=== PATIENT | male | born 1930 | race Asian ===

== ENCOUNTER 2017-01-20 20:54 | Outpatient (CLI) | payer MEDICARE, OTHER | END 2017-01-20 20:55 | disposition critical access hospital (66) | LOC: EMS 20:54 | PROVIDERS: ATTEND Surgery | DX: R55 Syncope and collapse (principal) | CPT/HCPCS: A0425; A0429 ==

== ENCOUNTER 2017-01-20 21:36 | Inpatient (IN) | payer MEDICARE, OTHER ==
[2017-01-20 22:20] LABS: BASOPHILS # (AUTO) 0.1 10^3/uL (0.0-0.1); BASOPHILS % (AUTO) 0.8 %; EOSINOPHILS # (AUTO) 0.2 10^3/uL (0.0-0.7); HCT - HEMATOCRIT 45.2 % (42.0-52.0); HGB - HEMOGLOBIN 14.3 g/dL (14.0-18.0); LYMPHOCYTES # (AUTO) 1.8 10^3/uL (1.5-3.5); LYMPHOCYTES % (AUTO) 15.9 %; MEAN CORPUSCULAR HEMOGLOBIN 28.7 pg (27.0-31.0); MEAN CORPUSCULAR HGB CONC 31.6 g/dL (32.0-36.0); MEAN CORPUSCULAR VOLUME 90.8 fL (80.0-94.0); MEAN PLATELET VOLUME 7.6 fL (7.4-11.4); MONOCYTES # (AUTO) 0.9 10^3/uL (0.0-1.0); MONOCYTES % (AUTO) 8.4 %; NEUTROPHILS # (AUTO) 8.2 10^3/uL (1.5-6.6); NEUTROPHILS % (AUTO) 72.9 %; RED BLOOD COUNT 4.98 10^6/uL (4.70-6.10); RED CELL DISTRIBUTION WIDTH 16.4 % (12.0-15.0); UNCORRECTED WHITE BLOOD COUNT 11.3 x10^3/uL; WHITE BLOOD COUNT 11.3 x10^3/uL (4.8-10.8)
[2017-01-20 22:33] LABS: ALBUMIN/GLOBULIN RATIO 0.8 (1.0-2.2); BILIRUBIN,TOTAL 0.6 mg/dL (0.2-1.0); CREATININE 1.3 mg/dL (0.6-1.2); POTASSIUM 4.6 mmol/L (3.5-5.0); TOTAL PROTEIN 7.3 g/dL (6.7-8.2)
--- NOTE | 2017-01-20 22:34 | XRAY Preliminary Report ---
Exam: XR CHEST 2 VIEW PA/LAT IMPRESSION: 1. Large heart. 2. Right upper lobe and right lower lobe infiltrates. 3. Hyperinflated lungs. [facility] SITE ID: [id number]
--- NOTE | 2017-01-20 22:36 | XRAY Report ---
EXAM: CHEST RADIOGRAPHY EXAM DATE: 01/20/2017 10:20 PM. CLINICAL HISTORY: Cough. Syncope. COMPARISON: None. TECHNIQUE: 2 views. FINDINGS: Lungs/Pleura: Patchy opacities in the lateral right upper lobe and basal right lower lobe. No pleural effusion. No pneumothorax. Hyperinflated lungs. Mediastinum: Large heart. Other: No compression fractures. IMPRESSION: 1. Large heart. 2. Right upper lobe and right lower lobe infiltrates. 3. Hyperinflated lungs. [facility] Referring Provider Line: [phone] SITE ID: [id number]
[2017-01-20] MEDS ORDERED: levoFLOXacin 750 MG/150 ML 750 MG/150 ML BAG IV ONE (22:45)
--- NOTE | 2017-01-20 22:48 | ED Physician Documentation ---
PD HPI SYNCOPE - Stated complaint Stated Complaint: SYNCOPE - Chief complaint Chief Complaint: Cardiac - History obtained from History obtained from: Patient, EMS - History of Present Illness Witnessed: Unwitnessed Timing - onset: Today Duration: Unknown Preceding symptoms: Dyspnea Associated symptoms: No: Seizure, Chest pain, Palpitations, Diaphoresis Contributing factors: No: Recent med change, Emotional upset, Just stood up Injury occurred: Head injury Similar symptoms before: Has not had sx before Recently seen: Not recently seen - Additional information Additional information: Patient is an 86 year old male with multiple co-morbidities who is presenting to the emergency department for syncopal episode. According to patient and ems , patient was sitting at the table, watching TV when he passed out. patient states that he does not know how long he was out for but he thinks it was still the same tv show on when he woke up. Patient states that he has been coughing a lot recently but has not been using his oxygen. patient denied any chest pain. Review of Systems Constitutional: denies: Fever, Chills Eyes: denies: Loss of vision, Decreased vision, Photophobia, Irritation Ears: denies: Ear pain, Drainage/discharge Nose: denies: Rhinorrhea / runny nose, Congestion Throat: denies: Dental pain / toothache Cardiac: denies: Chest pain / pressure, Palpitations Respiratory: reports: Dyspnea, Cough. denies: Wheezing GI: denies: Abdominal Pain, Nausea, Vomiting : reports: Reviewed and negative Skin: reports: Abrasion (s) Musculoskeletal: denies: Neck pain, Back pain, Joint pain Neurologic: reports: Syncope, Head injury. denies: Generalized weakness, Headache, LOC Immunocompromised: denies: Immunocompromised PD PAST MEDICAL HISTORY - Past Medical History Cardiovascular: None Respiratory: Asthma Neuro: None Endocrine/Autoimmune: Type 2 diabetes GI: GERD : Benign prostate hypertrophy - Past Surgical History Past Surgical History: Yes General: Colonoscopy Ortho: Spine surgery - Present Medications Home Medications: Ambulatory Orders Medication Instructions Recorded Confirmed ALPRAZolam [Alprazolam] 0.5 mg PO TID 11/16/14 11/16/14 Albuterol Sulfate [Albuterol 2 puffs QID 11/16/14 11/16/14 Sulfate Hfa] Budesonide/Formoterol 160/4.5 11/16/14 11/16/14 [Symbicort] Celecoxib [CeleBREX] 200 mg 11/16/14 11/16/14 Doxycycline Hyclate 100 mg 11/16/14 11/16/14 Dutasteride [Avodart] 0.5 mg DAILY 11/16/14 11/16/14 Esomeprazole Magnesium [Nexium] 40 mg PO DAILY 11/16/14 11/16/14 Guaifenesin [Guaifenesin ER] 11/16/14 11/16/14 LORazepam [Ativan] 11/16/14 11/16/14 Metformin HCl [Glucophage] 11/16/14 11/16/14 Rosuvastatin Calcium [Crestor] 10 mg PO DAILY 11/16/14 11/16/14 Zolpidem Tartrate [Ambien] 5 mg QPM 11/16/14 11/16/14 - Allergies Allergies/Adverse Reactions: Allergies Allergy/AdvReac Type Severity Reaction Status Date / Time Penicillins Allergy Unknown Verified 01/20/17 21:43 sertraline Allergy Unknown Verified 01/20/17 21:43 venlafaxine Allergy Unknown Verified 01/20/17 21:43 - Social History Does the pt smoke?: No Smoking Status: Never smoker Does the pt drink ETOH?: Yes Does the pt have substance abuse?: No - Immunizations Immunizations are current?: Yes - POLST Patient has POLST: No PD ED PE NORMAL - Vitals Vital signs reviewed: Yes - General General: Alert and oriented X 3, Well developed/nourished - HEENT HEENT: PERRL, Moist mucous membranes, Pharynx benign - Neck Neck: Supple, no meningeal sign, No JVD - Cardiac Cardiac: RRR, No murmur - Abdomen Abdomen: Soft, Non tender, Non distended - Extremities Extremities: No deformity, No edema, No calf tenderness / cord - Neuro Neuro: Alert and oriented X 3, No motor deficit, No sensory deficit, Normal speech Eye Opening: Spontaneous Motor: Obeys Commands Verbal: Oriented GCS Score: 15 PD ED PE EXPANDED - HEENT HEENT: Head injury (abrasion to forehead and nasal bridge, no bony deformity, no laceration) - Respiratory Respiratory: Rhonchi, Right middle lobe, Left upper lobe. No: Labored, Stridor , Retractions - Derm Derm: Abrasion (s) Results - Vitals Vitals: Vital Signs - 24 hr 01/20/17 01/20/17 01/20/17 21:39 22:41 22:42 Temperature 36.7 C Heart Rate 62 66 Respiratory 23 24 Rate Blood Pressure 161/76 H 160/85 H O2 Saturation 83 L 91 L Oxygen O2 Source Room air Oxygen Flow Rate 2.5 - EKG (time done) 2145 Rate: Rate (enter#) (63) Rhythm: NSR, Abnormal P waves [place]: Normal Intervals: Normal [place] Other comments: Other comments (multiple pvcs) Compare to prior EKG: Old EKG unavailable - Labs Labs: Laboratory Tests 01/20/17 01/20/17 01/20/17 22:15 22:15 22:15 WBC 11.3 H RBC 4.98 Hgb 14.3 Hct 45.2 MCV 90.8 MCH 28.7 MCHC 31.6 L RDW 16.4 H Plt Count 243 MPV 7.6 Neut # 8.2 H Lymph # 1.8 [place] # 0.9 Eos # 0.2 Baso # 0.1 Absolute Nucleated RBC 0.00 Nucleated RBC % 0.0 Sodium 140 Potassium 4.6 Chloride 104 Carbon Dioxide 27 Anion Gap 9.0 BUN 34 H Creatinine 1.3 H Estimated GFR (MDRD) 52 L Glucose 124 H Calcium 9.0 Total Bilirubin 0.6 AST 29 ALT 31 Alkaline Phosphatase 104 Troponin I 0.05 B-Natriuretic Peptide Total Protein 7.3 Albumin 3.3 Globulin 4.0 Albumin/Globulin Ratio 0.8 L Lipase 31 01/20/17 22:15 WBC RBC Hgb Hct MCV MCH MCHC RDW Plt Count MPV Neut # Lymph # [place] # Eos # Baso # Absolute Nucleated RBC Nucleated RBC % Sodium Potassium Chloride Carbon Dioxide Anion Gap BUN Creatinine Estimated GFR (MDRD) Glucose Calcium Total Bilirubin AST ALT Alkaline Phosphatase Troponin I B-Natriuretic Peptide 576 H Total Protein Albumin Globulin Albumin/Globulin Ratio Lipase - Rads (name of study) chest x-ray Radiology: Final report received (cardiomegaly, multipe infiltrates) PD MEDICAL DECISION MAKING - ED course Complexity details: reviewed old records, reviewed results, re-evaluated patient , considered differential, d/w patient, d/w hematology oncology consultant ED course: Patient was seen and examined at bedside. Patient was mildly hypoxic and was placed on supplemental oxygen. ekg was performed and showed no signs of acute ischemia. IV access was gained and labs were drawn. chest x-ray was performed and was consistent with pneumonia. Patient was started on levaquin. Patient met admission criteria for both syncope and the pneumonia. Hospitalist was contacted and the case was discussed with him. Patient was admitted for further evaluation and care. Departure - Departure Disposition: 66 [facility] DC/Xfer Clinical Impression: Pneumonia, Syncope Condition: Stable
[2017-01-20] MEDS ORDERED: ACETAMINOPHEN 325 MG TABLET PO PRN (22:51)
[2017-01-20] MEDS ORDERED: SODIUM CHLORIDE FLUSH 0.9% 10 ML SYRINGE IVP PRN (22:51)
[2017-01-20] MEDS ORDERED: HYDROcod/ACETAM 10 MG/325 MG TABLET PO PRN (22:51)
[2017-01-20] MEDS ORDERED: ZOLPIDEM 5 MG TABLET PO PRN (22:51)
[2017-01-20] MEDS ORDERED: PROCHLORPERAZINE 10 MG/2 ML VIAL IVP PRN (22:51)
[2017-01-20] MEDS ORDERED: ONDANSETRON 4 MG/2 ML VIAL IVP PRN (22:51)
[2017-01-20] MEDS ORDERED: HYDROcod/ACETAM 5/325 MG TABLET PO PRN (22:51)
[2017-01-21] MEDS: levoFLOXacin 500 MG/100 ML 500 MG/100 ML BAG IV SCH ×2 (00:35→22:14)
[2017-01-21] MEDS: SODIUM CHLORIDE 0.9% 1,000 ML IV SCH ×2 (00:44→09:35)
[2017-01-21] MEDS: BUDESONIDE 0.5 MG/2 ML NEB INH SCH ×3 (00:45→20:30)
[2017-01-21] MEDS: FORMOTEROL FUMARATE NEB 20 MCG/2 ML INH SCH ×3 (00:45→20:30)
[2017-01-21] MEDS: ALPRAZolam 0.25 MG TABLET PO SCH ×4 (00:53→21:06)
[2017-01-21 01:46] LABS: BILIRUBIN,URINE NEGATIVE (NEGATIVE)
[2017-01-21 01:47] LABS: UA CHARGE (STRIP ONLY) YES; UR CULTURE IF IND NOT INDICATED
--- NOTE | 2017-01-21 02:38 | HISTORY & PHYSICAL EXAMINATION ---
Chief Complaint - Chief Complaint Chief Complaint: Syncope History of Present Illness - Admitted From Admitted From:: Emergency department - History Obtained From Records Reviewed: Yes History obtained from: Patient Exam Limitations: None - History of Present Illness HPI Comment/Other: Patient is an 86-year-old gentleman with a past medical history significant for COPD on home 2 at home but patient does not use O2, hyperlipidemia, anxiety, GERD, diabetes and BPH who presents to the emergency department with a chief complaint of syncope. According to the patient he was sitting at his living room table watching television when all of a sudden he passed out. He states he hit his face on the table but awoke quickly as he states he remembers everything that happened in the television show he was watching. On further questioning the patient states that he is a patient of the [facility] and has been working on getting a [place] primary care doctor for the last 11 months. He states he is finally scheduled to see a new PCP and Dr. Singleton on 01/22/2017 at 9 AM. He states that for the last 2 months he has been having progressively worsening cough with sputum production and increasing shortness of air. The patient states that his cough and shortness of air have become significantly worse over the last week to a point where he states that he gets quite short of breath just walking 15-20 feet. The patient denies any orthopnea, PND or any increased lower extremity swelling. The patient also denies any fevers or chills. The patient denies having had any chest pain or palpitations prior to the episode. The patient denies having any dizziness prior to the episode. The patient denies any diarrhea or vomiting. Patient denies any history of heart disease or arrhythmias. On presentation to the emergency department the patient was hypoxic down to 83% on room air and had to be placed on 2-1/2 L of oxygen. The patient was afebrile and slightly hypertensive and appeared to be quite tachypneic. The patient did have significant abrasions over his forehead and nasal bridge. The patient did not have any major cuts requiring stitching. The patient's lab work revealed a mild leukocytosis of 11.3 and a mild elevation in his creatinine up to 1.3 from a baseline of 0.8. The patient's UA was negative his electrolytes were otherwise within normal limits and his BNP was slightly elevated at 576. The patient's troponin was 0.05, his EKG was sinus rhythm without any major ST elevations or ischemic changes. The patient did have a chest x-ray which revealed cardiomegaly with right upper lobe and right lower lobe infiltrates. Given the patient's presentation it was presumed that the patient likely passed out secondary to hypoxia due to a ongoing pneumonia and history of COPD. The patient was admitted to the hospital for community- acquired pneumonia and further workup of his syncope History - Past Medical History Cardiovascular: reports: High cholesterol Respiratory: reports: COPD Neuro: reports: Fainting Endocrine/Autoimmune: reports: Type 2 diabetes GI: reports: GERD : reports: Benign prostate hypertrophy HEENT: reports: Chronic vision loss Psych: reports: Depression, Anxiety Musculoskeletal: reports: Osteoarthritis MRSA Hx?: Yes - Past Surgical History General: reports: Colonoscopy Ortho: reports: Spine surgery - Family & Social History Family History: Mother: (Mother at the age of 94 and father at age of 88 of natural causes), Father: Family History Comment/Other: No family history of heart disease, diabetes or cancer. Living arrangement: At home Living Situation: Alone Social History Notes: The patient states that he lives in [place]. He is a former Marine. He was born in [place]. He is . He does have a son that also lives on [facility] and is also a marine. The patient is a former smoker he quit about 20 years ago. He smoked for over 50 years and smoked 1-2 packs a day. He does not drink alcohol and denies any illicit drug use. - POLST Patient has POLST: No POLST Status: Full Code Meds/Allgy - Home Medications Home Medications: Ambulatory Orders Medication Instructions Recorded Confirmed ALPRAZolam [Alprazolam] 0.5 mg PO TID 11/16/14 11/16/14 Albuterol Sulfate [Albuterol 2 puffs QID 11/16/14 11/16/14 Sulfate Hfa] Budesonide/Formoterol 160/4.5 11/16/14 11/16/14 [Symbicort] Celecoxib [CeleBREX] 200 mg 11/16/14 11/16/14 Doxycycline Hyclate 100 mg 11/16/14 11/16/14 Dutasteride [Avodart] 0.5 mg DAILY 11/16/14 11/16/14 Esomeprazole Magnesium [Nexium] 40 mg PO DAILY 11/16/14 11/16/14 Guaifenesin [Guaifenesin ER] 11/16/14 11/16/14 LORazepam [Ativan] 11/16/14 11/16/14 Metformin HCl [Glucophage] 11/16/14 11/16/14 Rosuvastatin Calcium [Crestor] 10 mg PO DAILY 11/16/14 11/16/14 Zolpidem Tartrate [Ambien] 5 mg QPM 11/16/14 11/16/14 - Allergies Allergies/Adverse Reactions: Allergies Allergy/AdvReac Type Severity Reaction Status Date / Time Penicillins Allergy Unknown Verified 01/20/17 21:43 sertraline Allergy Unknown Verified 01/20/17 21:43 venlafaxine Allergy Unknown Verified 01/20/17 21:43 Review of Systems - Other Findings Other Findings: A comprehensive review of systems was performed the pertinent positives and negatives are stated above in the HPI and the remainder of the review of systems is negative. Exam - Vital Signs Reviewed Vital Signs: Yes Vital Signs: Vital Signs x48h Temp Pulse Pulse Resp BP BP Pulse Ox 01/21/17 00:43 36.9 C 59 L 19 147/73 H 92 01/20/17 23:48 66 20 152/71 H - Physical Exam General Appearance: positive: Alert, Mild distress (Patient does appear to be tachypneic and in some respiratory distress), Other (The patient is morose and did make some racially inappropriate comments towards myself. He was also very sullen towards his grandson that was in the room.) Eyes Bilateral: positive: Normal inspection, PERRL, EOMI, No lid inflammation, Conjunctivae nml, No scleral icterus ENT: positive: ENT inspection nml, Pharynx nml, Dry mucous membranes, Other ( Patient does have abrasions over his lower/mid forehead area as well as on the nasal bridge that appear almost like a rug burn). negative: Purulent nasal drainage, Pharyngeal erythema, Oral lesions Neck: positive: Nml inspection, Thyroid nml, No JVD, Trachea midline. negative : Thyromegaly, Lymphadenopathy (R), Lymphadenopathy (L), Stiff neck, Carotid bruit, Tracheal deviation Respiratory: positive: Chest non-tender, Wheezes (Scattered, expiratory), Rales (Bilateral bases), Rhonchi (Right-sided) Cardiovascular: positive: Regular rate & rhythm, No murmur, No gallop Peripheral Pulses: positive: 2+ Abdomen: positive: Non-tender, No organomegaly, Nml bowel sounds, No distention. negative: Guarding, Rebound, Hepatomegaly Back: positive: Nml inspection. negative: CVA tenderness (R), CVA tenderness (L ) Skin: positive: Warm. negative: Cyanosis, Diaphoresis, Pallor Extremities: positive: Non-tender, Full ROM, Pedal edema (Mild bilateral leg), Other (Erythema bilateral legs consistent with stasis dermatitis) Neurologic/Psychiatric: positive: Oriented x3, CN's nml (2-12), Motor nml, Sensation nml, Mood/affect nml Conclusion/Plan - Problem List (1) CAP (community acquired pneumonia) Conclusion/Plan: The patient presented originally to the emergency department with an episode of syncope. However on arrival he was found to be hypoxic with an O2 saturation of 83% on room air and was tachypneic with coughing and phlegm production. On further questioning the patient stated that he is supposed to be on oxygen at home for COPD however he does not use his oxygen. The patient had a short- lived syncopal episode from which he awoke with abrasions to his forehead and nasal bridge. The patient has been having increasing shortness of breath and coughing with sputum production over the last month but significantly worse over the last week. He has been trying to get into see a [facility] PCP however has had a very difficult time dealing with the [facility] system. Lab work revealed a leukocytosis and patient's chest x-ray showed right upper and lower lobe infiltrates given the patient's hypoxia and syncopal episode he was admitted to the [facility] for treatment of community acquired pneumonia with IV antibiotics. Plan: Patient will be placed on IV Levaquin for treatment of community acquired pneumonia We will give the patient IV fluids as he does appear to be on the dry side Patient desperately needs to make an appointment that he has set with his primary care physician at the [facility] on 01/22/2017 we could not promise the patient that he would be discharged in time to make the appointment however we will try and do our best to get the patient to that appointment. The patient did threaten that if he is not discharged in time for the appointment that he would leave AMA. Supplemental oxygen Duo nebs Qualifiers: Laterality: right (2) Syncope Conclusion/Plan: The patient presents to the emergency department with a syncopal episode. This episode occurred while the patient was sitting on his couch watching TV. The patient face planted into his table. He did have significant abrasions over his forehead and nasal bridge. The patient states that this was not a prolonged syncopal episode and in fact states that he remembers the entire episode. The etiology of the patient's syncope appears likely secondary to him being hypoxic due to chronic COPD and now a new pneumonia. It is however possible given that this was a sudden syncope that this could have been from a cardiac arrhythmia. Plan: Patient will be monitored on telemetry Patient will undergo an echocardiogram in the morning We will monitor for any further episodes Patient will be given supplemental oxygen (3) COPD (chronic obstructive pulmonary disease) Conclusion/Plan: The patient has a history of COPD and is on oxygen at home but does not use his oxygen appropriately. Patient does use inhalers as needed but states that he does not use his Symbicort daily. Patient presents with hypoxia and is found to have community acquired pneumonia he does have some mild wheezing on examination but does not appear to be in a pullout COPD exacerbation at this time. Plan: We will give the patient supplemental oxygen Patient will be given formoterol and budesonide twice daily while he is hospitalized Patient will be given DuoNeb's as needed Patient will be on Levaquin for community acquired pneumonia We will not treat with steroids as the patient does have history of diabetes and is not in COPD exacerbation (4) MARY ANN (acute kidney injury) Conclusion/Plan: The patient does appear to be quite dry on examination. Looking at his lab work his creatinine is elevated to 1.3 which is up from a baseline of 0.8. This is likely prerenal azotemia secondary to community-acquired pneumonia. Plan: Patient will be given IV fluids We will continue to monitor the patient's creatinine (5) Diabetes Conclusion/Plan: The patient has history of diabetes and is on metformin at home. The patient however denies having diabetes and states that was a long time ago but does admit to taking metformin. Plan: We will check a hemoglobin A1c Patient be placed on a diabetic diet Patient's metformin will be held Patient will be placed on sliding scale insulin while he is hospitalized We will check patient's blood glucose before meals at bedtime Qualifiers: Diabetes mellitus type: type 2 (6) Prophylactic use of low molecular weight heparin for venous thromboembolism Conclusion/Plan: Patient was placed on Lovenox for DVT prophylaxis while he is hospitalized - Lab Results Lab results reviewed: Yes Fish Bones: 01/20/17 22:15 01/20/17 22:15 Other Lab Results: Laboratory Results WBC 11.3 x10^3/uL (4.8-10.8) H 01/20/17 22:15 RBC 4.98 10^6/uL (4.70-6.10) 01/20/17 22:15 Hgb 14.3 g/dL (14.0-18.0) 01/20/17 22:15 Hct 45.2 % (42.0-52.0) 01/20/17 22:15 MCV 90.8 fL (80.0-94.0) 01/20/17 22:15 MCH 28.7 pg (27.0-31.0) 01/20/17 22:15 MCHC 31.6 g/dL (32.0-36.0) L 01/20/17 22:15 RDW 16.4 % (12.0-15.0) H 01/20/17 22:15 Plt Count 243 10^3/uL (130-450) 01/20/17 22:15 MPV 7.6 fL (7.4-11.4) 01/20/17 22:15 Neut # 8.2 10^3/uL (1.5-6.6) H 01/20/17 22:15 Lymph # 1.8 10^3/uL (1.5-3.5) 01/20/17 22:15 [place] # 0.9 10^3/uL (0.0-1.0) 01/20/17 22:15 Eos # 0.2 10^3/uL (0.0-0.7) 01/20/17 22:15 Baso # 0.1 10^3/uL (0.0-0.1) 01/20/17 22:15 Absolute Nucleated RBC 0.00 x10^3/uL 01/20/17 22:15 Nucleated RBC % 0.0 /100WBC 01/20/17 22:15 Sodium 140 mmol/L (135-145) 01/20/17 22:15 Potassium 4.6 mmol/L (3.5-5.0) 01/20/17 22:15 Chloride 104 mmol/L (101-111) 01/20/17 22:15 Carbon Dioxide 27 mmol/L (21-32) 01/20/17 22:15 Anion Gap 9.0 (6-13) 01/20/17 22:15 BUN 34 mg/dL (6-20) H 01/20/17 22:15 Creatinine 1.3 mg/dL (0.6-1.2) H 01/20/17 22:15 Estimated GFR (MDRD) 52 (>89) L 01/20/17 22:15 Glucose 124 mg/dL (70-100) H 01/20/17 22:15 Calcium 9.0 mg/dL (8.5-10.3) 01/20/17 22:15 Total Bilirubin 0.6 mg/dL (0.2-1.0) 01/20/17 22:15 AST 29 IU/L (10-42) 01/20/17 22:15 ALT 31 IU/L (10-60) 01/20/17 22:15 Alkaline Phosphatase 104 IU/L (42-121) 01/20/17 22:15 Troponin I 0.05 ng/mL (<0.49) 01/20/17 22:15 B-Natriuretic Peptide 576 pg/mL (5-100) H 01/20/17 22:15 Total Protein 7.3 g/dL (6.7-8.2) 01/20/17 22:15 Albumin 3.3 g/dL (3.2-5.5) 01/20/17 22:15 Globulin 4.0 g/dL (2.1-4.2) 01/20/17 22:15 Albumin/Globulin Ratio 0.8 (1.0-2.2) L 01/20/17 22:15 Lipase 31 U/L (22-51) 01/20/17 22:15 Urine Color YELLOW 01/21/17 01:42 Urine Clarity CLEAR (CLEAR) 01/21/17 01:42 Urine pH 6.0 PH (5.0-7.5) 01/21/17 01:42 Ur Specific [place] >=1.030 (1.002-1.030) H 01/21/17 01:42 Urine Protein NEGATIVE mg/dL (NEGATIVE) 01/21/17 01:42 Urine Glucose (UA) NEGATIVE mg/dL (NEGATIVE) 01/21/17 01:42 Urine Ketones NEGATIVE mg/dL (NEGATIVE) 01/21/17 01:42 Urine Occult Blood NEGATIVE (NEGATIVE) 01/21/17 01:42 Urine Nitrite NEGATIVE (NEGATIVE) 01/21/17 01:42 Urine Bilirubin NEGATIVE (NEGATIVE) 01/21/17 01:42 Urine Urobilinogen 0.2 (NORMAL) E.U./dL (NORMAL) 01/21/17 01:42 Ur Leukocyte Esterase NEGATIVE (NEGATIVE) 01/21/17 01:42 Ur Microscopic Review NOT INDICATED 01/21/17 01:42 Urine Culture Comments NOT INDICATED 01/21/17 01:42 - Diagnostic Imaging Results Diagnostic Imaging Results: positive: Final report reviewed Diagnostic Imaging Results Comments: Chest x-ray Impression: 1. Large heart 2. Right upper lobe and right lower lobe infiltrates. 3. Hyperinflated lungs - EKG Results EKG Interpreted Independently: Yes EKG Findings: Sinus rhythm with no ST elevations or acute ischemic changes. Issues/Core Measures - Anticipated LOS Anticipated Stay Length: 2 or more midnights - DVT/VTE - Prophylaxis VTE/DVT Prophylaxis med ordered at admit?: Yes
[2017-01-21] MEDS: SODIUM CHLORIDE FLUSH 0.9% 10 ML SYRINGE IVP SCH ×3 (05:04→22:14)
[2017-01-21 05:23] LABS: BASOPHILS # (AUTO) 0.1 10^3/uL (0.0-0.1); BASOPHILS % (AUTO) 1.1 %; EOSINOPHILS # (AUTO) 0.2 10^3/uL (0.0-0.7); EOSINOPHILS % (AUTO) 1.8 %; HCT - HEMATOCRIT 43.1 % (42.0-52.0); HGB - HEMOGLOBIN 13.8 g/dL (14.0-18.0); LYMPHOCYTES # (AUTO) 2.2 10^3/uL (1.5-3.5); LYMPHOCYTES % (AUTO) 17.1 %; MEAN CORPUSCULAR VOLUME 90.6 fL (80.0-94.0); MEAN PLATELET VOLUME 7.6 fL (7.4-11.4); MONOCYTES # (AUTO) 1.2 10^3/uL (0.0-1.0); MONOCYTES % (AUTO) 9.3 %; NEUTROPHILS # (AUTO) 9.1 10^3/uL (1.5-6.6); NEUTROPHILS % (AUTO) 70.7 %; RED BLOOD COUNT 4.76 10^6/uL (4.70-6.10); RED CELL DISTRIBUTION WIDTH 16.3 % (12.0-15.0); UNCORRECTED WHITE BLOOD COUNT 12.9 x10^3/uL; WHITE BLOOD COUNT 12.9 x10^3/uL (4.8-10.8)
[2017-01-21 05:34] LABS: CALCIUM 8.7 mg/dL (8.5-10.3); CREATININE 1.1 mg/dL (0.6-1.2); POTASSIUM 4.6 mmol/L (3.5-5.0)
[2017-01-21 05:53] LABS: HEMOGLOBIN A1C 0.71 g/dL
[2017-01-21] MEDS: PANTOPRAZOLE 40 MG TABLET PO SCH (06:38)
[2017-01-21] MEDS: IPRATROPIUM/ALBUTEROL 3 ML NEB INH PRN ×2 (07:56→15:30)
[2017-01-21] MEDS: INSULIN ASPART 300 UNIT/3 ML PEN SUBQ SCH ×4 (08:07→20:59)
[2017-01-21] MEDS: POLYETHYLENE GLYCOL 3350 17 GM PACKET PO SCH (08:08)
[2017-01-21] MEDS ORDERED: cefTRIAXone 2 GM in SODIUM CHLORIDE 0.9% MINIBAG 100 ML IV SCH (09:00)
[2017-01-21] MEDS ORDERED: AZITHROMYCIN INJ 500 MG in SODIUM CHLORIDE 0.9% 250 ML IV SCH (09:00)
[2017-01-21] MEDS ORDERED: DUTASTERIDE 0.5 MG PO SCH (09:00)
[2017-01-21] MEDS ORDERED: NON FORMULARY MED (Rosuvastatin Calcium [Crestor] 10 MG) PO SCH (09:00)
[2017-01-21] MEDS: SACCHAROMYCES BOULARDII 250 MG CAPSULE PO SCH ×2 (09:35→18:10)
[2017-01-21] MEDS: CELECOXIB 100 MG CAPSULE PO SCH (09:36)
[2017-01-21] MEDS: ENOXAPARIN 40 MG/0.4 ML SYRINGE SUBQ SCH (09:36)
[2017-01-21] MEDS: FINASTERIDE 5 MG TABLET PO SCH (09:36)
--- NOTE | 2017-01-21 12:33 | PROVIDER PROGRESS NOTE ---
Subjective - Prog Note Date Prog Note Date: 01/21/17 Prog Note Time: 12:29 - Subjective Pt reports feeling: Worse Subjective: He has not done well this morning. Got a sleeping pill at 3 in the morning so this morning he was quite obtunded. Gurgling, barely coughing up phlegm. Swallowing was a risk for aspiration. We gave him nebulizer treatment, oxygen and he seemed to perk up. Now, at 12:30 in the afternoon he is back to being obtunded, hypoxic requiring face max, and I have had a chance to review his pharmacy list. The pharmacist was able to call [facility], where he gets his prescriptions. He has not seen a primary care provider in quite some time. He has been hospitalized at [facility], seen a plasterer foreman in [place] ( MD Aniket) and seen a baseball winder at [place] (Catarino Reed MD). All of these people have given him short-term prescriptions for Lasix, and he was told to follow up. His last prescription for Lasix was in September of this year. The only medicines he has filled at [facility] have been Lasix, lisinopril, pro-air , and Symbicort. ProAir air was filled January 04 by his plasterer foreman. Lisinopril was filled January 04. It is unclear if his Lasix was picked up January 04. Current Medications - Current Medications Current Medications: Active Medications Acetaminophen (Tylenol) 650 mg PO Q4HR PRN PRN Reason: Pain 1 to 4 Last Admin: 01/21/17 02:34 Dose: 650 mg Acetaminophen/Hydrocodone Bitart (Edelstein 5/325) 1 tab PO Q4HR PRN PRN Reason: Pain 5 to 7 Acetaminophen/Hydrocodone Bitart ([place]stein 10 Mg/325 Mg) 1 tab PO Q4HR PRN PRN Reason: Pain 8 to 10 Albuterol/Ipratropium (Duoneb) 3 ml INH RTQID PRN PRN Reason: Wheezing Last Admin: 01/21/17 07:56 Dose: 3 ml Alprazolam (Xanax) 0.5 mg PO TID CLARE Last Admin: 01/21/17 05:01 Dose: Not Given Atorvastatin Calcium (Lipitor) 40 mg PO QPM CLARE Budesonide (Pulmicort) 0.5 mg INH RTBID CLARE Last Admin: 01/21/17 07:56 Dose: 0.5 mg Celecoxib (Celebrex) 200 mg PO DAILY [facility] Last Admin: 01/21/17 09:36 Dose: 200 mg Enoxaparin Sodium (Lovenox) 40 mg SUBQ DAILY [facility] Last Admin: 01/21/17 09:36 Dose: 40 mg Finasteride (Proscar) 5 mg PO DAILY [facility] Last Admin: 01/21/17 09:36 Dose: 5 mg Formoterol Fumarate (Perforomist) 20 mcg INH RTBID [facility] Last Admin: 01/21/17 07:56 Dose: 20 mcg Furosemide (Lasix Inj 40 Mg Vial) 40 mg IVP BIDDIURETIC [facility] Sodium Chloride (Normal Saline 0.9%) 1,000 mls @ 120 mls/hr IV .Q8H20M [facility] Last Admin: 01/21/17 09:35 Dose: 120 mls/hr Levofloxacin (Levaquin 500 Mg/100 Ml) 500 mg in 100 mls @ 100 mls/hr IV Q24H [facility] Insulin Aspart (Novolog) 1 - 5 unit SUBQ 0800,1200,1700,2100 [facility] PRN Reason: Protocol Last Admin: 01/21/17 08:07 Dose: Not Given Ondansetron HCl (Zofran Inj) 4 mg IVP Q6HR PRN PRN Reason: Nausea / Vomiting Pantoprazole Sodium (Protonix) 40 mg PO QDAC [facility] Last Admin: 01/21/17 06:38 Dose: 40 mg Polyethylene Glycol (Miralax) 17 gm PO DAILY [facility] Last Admin: 01/21/17 08:08 Dose: Not Given Prochlorperazine Edisylate (Compazine Inj) 10 mg IVP Q6HR PRN PRN Reason: Nausea / Vomiting Saccharomyces Boulardii (Florastor) 250 mg PO BIDWM [facility] Last Admin: 01/21/17 09:35 Dose: 250 mg Sodium Chloride (Normal Saline Flush 0.9%) 10 ml IVP PRN PRN PRN Reason: NEEDED PER PROVIDER ORDERS Sodium Chloride (Normal Saline Flush 0.9%) 10 ml IVP Q8HR [facility] Last Admin: 01/21/17 05:04 Dose: Not Given Zolpidem Tartrate (Ambien) 5 mg PO QPM PRN PRN Reason: Insomnia Last Admin: 01/21/17 03:03 Dose: 5 mg Budesonide/Formoterol 160/4.5 [Symbicort] 2 puffs INH BID 11/16/14 Albuterol Sulfate [Proair Hfa Inhaler] 2 puffs INH Q4H PRN 01/21/17 Furosemide 20 mg PO DAILY 01/21/17 Lisinopril 10 mg PO DAILY 01/21/17 Objective - Vital Signs/Intake & Output Reviewed Vital Signs: Yes Vital Signs: Vital Signs x48h Temp Pulse Pulse Resp BP Pulse Ox 01/21/17 07:59 74 24 01/21/17 07:47 36.4 C L 83 19 143/72 H 88 L 01/21/17 07:46 17 87 L 01/21/17 07:40 19 83 L 01/21/17 04:55 36.6 C 80 18 144/82 H 92 Intake & Output: Intake & Output 01/18/17 01/19/17 01/20/17 01/21/17 23:59 23:59 23:59 23:59 Intake Total 1650 Output Total 550 Balance 1100 - Objective General Appearance: positive: Moderate distress, Other (Tall, moderately overweight elderly gentleman with a large belly who is obtunded, responds to voice and sternal rub) Eyes Bilateral: positive: PERRL ENT: positive: Dry mucous membranes Neck: negative: Lymphadenopathy (R), Lymphadenopathy (L), Stiff neck, Carotid bruit Respiratory: positive: Chest non-tender, Wheezes, Rales, Rhonchi, Other (No use of accessory muscles. No rib retraction.Breathing at 4-14 breaths a minute) Cardiovascular: positive: Irregularly irregular, JVD present. negative: Gallop/ S4, Friction rub Abdomen: positive: Non-tender, Nml bowel sounds, No distention, Other (Obese, large rotund pannus) Extremities: positive: Pedal edema Neurologic/Psychiatric: positive: CN's nml (2-12), Motor nml, Disoriented to person, Disoriented to place, Disoriented to time, Slurred/abnml speech - Lab Results Fish Bones: 01/21/17 05:08 01/21/17 05:08 Other Labs: Lab Results x24hrs 01/21/17 01/21/17 01/21/17 Range/Units 12:22 08:06 05:08 WBC (4.8-10.8) x10^3/uL RBC (4.70-6.10) 10^6/uL Hgb (14.0-18.0) g/dL Hct (42.0-52.0) % MCV (80.0-94.0) fL MCH (27.0-31.0) pg MCHC (32.0-36.0) g/dL RDW (12.0-15.0) % Plt Count (130-450) 10^3/uL MPV (7.4-11.4) fL Neut # (1.5-6.6) 10^3/uL Lymph # (1.5-3.5) 10^3/uL [place] # (0.0-1.0) 10^3/uL Eos # (0.0-0.7) 10^3/uL Baso # (0.0-0.1) 10^3/uL Absolute Nucleated RBC x10^3/uL Nucleated RBC % /100WBC Sodium (135-145) mmol/L Potassium (3.5-5.0) mmol/L Chloride (101-111) mmol/L Carbon Dioxide (21-32) mmol/L Anion Gap (6-13) BUN (6-20) mg/dL Creatinine (0.6-1.2) mg/dL Estimated GFR (MDRD) (>89) Glucose (70-100) mg/dL POC Whole Bld Glucose 120 H 102 H (70 - 100) mg/dL Glycated Hemoglobin 6.6 H (4.6-6.2) % Estim Average Glucose 143 H (70-100) Calcium (8.5-10.3) mg/dL Urine Color Urine Clarity (CLEAR) Urine pH (5.0-7.5) PH Ur Specific [place] (1.002-1.030) Urine Protein (NEGATIVE) mg/dL Urine Glucose (UA) (NEGATIVE) mg/dL Urine Ketones (NEGATIVE) mg/dL Urine Occult Blood (NEGATIVE) Urine Nitrite (NEGATIVE) Urine Bilirubin (NEGATIVE) Urine Urobilinogen (NORMAL) E.U./dL Ur Leukocyte Esterase (NEGATIVE) Ur Microscopic Review Urine Culture Comments 11/28/17 11/28/17 11/28/17 Range/Units 05:08 05:08 01:42 WBC 12.9 H (4.8-10.8) x10^3/uL RBC 4.76 (4.70-6.10) 10^6/uL Hgb 13.8 L (14.0-18.0) g/dL Hct 43.1 (42.0-52.0) % MCV 90.6 (80.0-94.0) fL MCH 29.0 (27.0-31.0) pg MCHC 32.0 (32.0-36.0) g/dL RDW 16.3 H (12.0-15.0) % Plt Count 235 (130-450) 10^3/uL MPV 7.6 (7.4-11.4) fL Neut # 9.1 H (1.5-6.6) 10^3/uL Lymph # 2.2 (1.5-3.5) 10^3/uL [place] # 1.2 H (0.0-1.0) 10^3/uL Eos # 0.2 (0.0-0.7) 10^3/uL Baso # 0.1 (0.0-0.1) 10^3/uL Absolute Nucleated RBC 0.00 x10^3/uL Nucleated RBC % 0.0 /100WBC Sodium 140 (135-145) mmol/L Potassium 4.6 (3.5-5.0) mmol/L Chloride 107 (101-111) mmol/L Carbon Dioxide 25 (21-32) mmol/L Anion Gap 8.0 (6-13) BUN 31 H (6-20) mg/dL Creatinine 1.1 (0.6-1.2) mg/dL Estimated GFR (MDRD) 63 L (>89) Glucose 132 H (70-100) mg/dL POC Whole Bld Glucose (70 - 100) mg/dL Glycated Hemoglobin (4.6-6.2) % Estim Average Glucose (70-100) Calcium 8.7 (8.5-10.3) mg/dL Urine Color YELLOW Urine Clarity CLEAR (CLEAR) Urine pH 6.0 (5.0-7.5) PH Ur Specific [place] >=1.030 H (1.002-1.030) Urine Protein NEGATIVE (NEGATIVE) mg/dL Urine Glucose (UA) NEGATIVE (NEGATIVE) mg/dL Urine Ketones NEGATIVE (NEGATIVE) mg/dL Urine Occult Blood NEGATIVE (NEGATIVE) Urine Nitrite NEGATIVE (NEGATIVE) Urine Bilirubin NEGATIVE (NEGATIVE) Urine Urobilinogen 0.2 (NORMAL) (NORMAL) E.U./dL Ur Leukocyte Esterase NEGATIVE (NEGATIVE) Ur Microscopic Review NOT INDICATED Urine Culture Comments NOT INDICATED Assessment/Plan - Problem List (1) Acute respiratory failure with hypoxemia Impression: Most likely a combination of pneumonia and congestive heart failure. Plan: Check ABG Lasix 40 mg IV push will be started, twice daily Review echo when it is ready Continue Perforomist, Pulhanh, Shawn, Levaquin Once ABG is reviewed, consider transfer to ICU for BiPAP (2) CAP (community acquired pneumonia) Impression: The patient presented originally to the emergency department with an episode of syncope. However on arrival he was found to be hypoxic with an O2 saturation of 83% on room air and was tachypneic with coughing and phlegm production. On further questioning the patient stated that he is supposed to be on oxygen at home for COPD however he does not use his oxygen. The patient had a short- lived syncopal episode from which he awoke with abrasions to his forehead and nasal bridge. The patient has been having increasing shortness of breath and coughing with sputum production over the last month but significantly worse over the last week. He has been trying to get into see a [facility] PCP however has had a very difficult time dealing with the [facility] system. Lab work revealed a leukocytosis and patient's chest x-ray showed right upper and lower lobe infiltrates given the patient's hypoxia and syncopal episode he was admitted to the medical [facility] for treatment of community acquired pneumonia with IV antibiotics. Plan: Patient will be placed on IV Levaquin for treatment of community acquired pneumonia. Day #2. We gave the patient IV fluids as he did appear to be on the dry side but have stopped it due to acute chf. Patient desperately needs to make an appointment that he has set with his primary care physician at the [facility] on 01/22/2017 we could not promise the patient that he would be discharged in time to make the appointment however we will try and do our best to get the patient to that appointment. He is worse today so I don't think I an dc in the morning. The patient did threaten that if he is not discharged in time for the appointment that he would leave [facility] Qualifiers: Laterality: right (3) Syncope Conclusion/Plan: The patient presents to the emergency department with a syncopal episode. This episode occurred while the patient was sitting on his couch watching TV. The patient face planted into his table. He did have significant abrasions over his forehead and nasal bridge. The patient states that this was not a prolonged syncopal episode and in fact states that he remembers the entire episode. The etiology of the patient's syncope appears likely secondary to him being hypoxic due to chronic COPD and now a new pneumonia. It is however possible given that this was a sudden syncope that this could have been from a cardiac arrhythmia. Plan: Patient will be monitored on telemetry and so far he has had sinus, 1st degree with a bundle and many ectopic beats of PAC's and PVC's. Patient will undergo an echocardiogram today to see if there is a component to what I suspect is CHF. We will monitor for any further episodes of syncope. (4) COPD (chronic obstructive pulmonary disease) Conclusion/Plan: The patient has a history of COPD and is on oxygen at home but does not use his oxygen appropriately. [employer] is Antwan Marcial in [place]. Patient does use inhalers as needed but states that he does not use his Symbicort daily. Patient presents with hypoxia and is found to have community acquired pneumonia he does have some mild wheezing on examination but does not appear to be in a pullout COPD exacerbation at this time. Plan: We will give the patient supplemental oxygen Patient will be given formoterol and budesonide twice daily while he is hospitalized Patient will be given DuoNeb's as needed Patient will be on Levaquin for community acquired pneumonia We will not treat with steroids as the patient does have history of diabetes and is not in COPD exacerbation (5) MARY ANN (acute kidney injury) Conclusion/Plan: The patient does appear to be quite dry on examination. Looking at his lab work his creatinine is elevated to 1.3 which is up from a baseline of 0.8. This is likely prerenal azotemia secondary to community-acquired pneumonia. Today he is 1.1 so improved slightly. Plan: Patient will be given IV fluids We will continue to monitor the patient's creatinine (6) Diabetes Conclusion/Plan: The patient has history of diabetes and is on metformin at home. The patient however denies having diabetes and states that was a long time ago but does admit to taking metformin. Plan: We will check a hemoglobin A1c Patient be placed on a diabetic diet Patient's metformin will be held to avoid lactic acidosis. Patient will be placed on sliding scale insulin while he is hospitalized and so far none has been needed up to now. We will check patient's blood glucose before meals at bedtime Qualifiers: Diabetes mellitus type: type 2 Qualifiers: Laterality: right
[2017-01-21 12:56] LABS: ABG ANALYSIS TIME 1253; ABG PCO2 57 mmHg (34-45); ABG PH 7.28 (7.35-7.45)
[2017-01-21 12:57] LABS: ABG BASE EXCESS -1.6 mmol/L (-2.0-3.0); ABG HCO3 26.2 mmol/L (22.0-26.0); ABG O2 DEVICE OXYMASK; ABG OXYGEN SATURATION 93 % (94-98); ABG PO2 73 mmHg (80-100); ABG SITE OF DRAW RIGHT RADIAL; ABG TCO2 27.9 MMOL/L (21.0-29.0); ALLEN TEST POSITIVE
[2017-01-21] MEDS: FUROSEMIDE 40 MG/4 ML VIAL IVP SCH ×2 (13:03→13:05)
[2017-01-21] MEDS: ATORVASTATIN 40 MG TABLET PO SCH (21:06)
[2017-01-22 05:55] LABS: BASOPHILS % (AUTO) 0.3 %; EOSINOPHILS # (AUTO) 0.2 10^3/uL (0.0-0.7); EOSINOPHILS % (AUTO) 1.9 %; HGB - HEMOGLOBIN 13.2 g/dL (14.0-18.0); LYMPHOCYTES # (AUTO) 1.2 10^3/uL (1.5-3.5); LYMPHOCYTES % (AUTO) 10.5 %; MEAN CORPUSCULAR HEMOGLOBIN 28.9 pg (27.0-31.0); MEAN CORPUSCULAR HGB CONC 31.5 g/dL (32.0-36.0); MEAN CORPUSCULAR VOLUME 91.6 fL (80.0-94.0); MEAN PLATELET VOLUME 7.6 fL (7.4-11.4); MONOCYTES % (AUTO) 8.5 %; NEUTROPHILS # (AUTO) 8.8 10^3/uL (1.5-6.6); NEUTROPHILS % (AUTO) 78.8 %; RED BLOOD COUNT 4.58 10^6/uL (4.70-6.10); UNCORRECTED WHITE BLOOD COUNT 11.1 x10^3/uL; WHITE BLOOD COUNT 11.1 x10^3/uL (4.8-10.8)
[2017-01-22 05:57] LABS: CALCIUM 8.6 mg/dL (8.5-10.3); CREATININE 0.9 mg/dL (0.6-1.2); POTASSIUM 4.7 mmol/L (3.5-5.0)
[2017-01-22] MEDS: ALPRAZolam 0.25 MG TABLET PO SCH ×3 (06:44→21:57)
[2017-01-22] MEDS: PANTOPRAZOLE 40 MG TABLET PO SCH (06:44)
[2017-01-22] MEDS: FUROSEMIDE 40 MG/4 ML VIAL IVP SCH ×2 (06:44→14:44)
[2017-01-22] MEDS: SODIUM CHLORIDE FLUSH 0.9% 10 ML SYRINGE IVP SCH ×3 (06:45→21:57)
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
[2017-01-22] MEDS: BUDESONIDE 0.5 MG/2 ML NEB INH SCH ×2 (07:54→19:30)
[2017-01-22] MEDS: IPRATROPIUM/ALBUTEROL 3 ML NEB INH PRN (07:54)
[2017-01-22] MEDS: SACCHAROMYCES BOULARDII 250 MG CAPSULE PO SCH ×2 (08:57→17:02)
[2017-01-22] MEDS: CELECOXIB 100 MG CAPSULE PO SCH (08:57)
[2017-01-22] MEDS: FINASTERIDE 5 MG TABLET PO SCH (08:58)
[2017-01-22] MEDS: ENOXAPARIN 40 MG/0.4 ML SYRINGE SUBQ SCH (08:58)
[2017-01-22] MEDS: INSULIN ASPART 300 UNIT/3 ML PEN SUBQ SCH ×4 (08:58→21:15)
[2017-01-22] MEDS: FORMOTEROL FUMARATE NEB 20 MCG/2 ML INH SCH ×2 (09:13→19:30)
[2017-01-22] MEDS: POLYETHYLENE GLYCOL 3350 17 GM PACKET PO SCH (09:24)
[2017-01-22] MEDS: levoFLOXacin 500 MG/100 ML 500 MG/100 ML BAG IV SCH (21:57)
[2017-01-22] MEDS: ATORVASTATIN 40 MG TABLET PO SCH (21:57)
[2017-01-23 05:46] LABS: BASOPHILS # (AUTO) 0.1 10^3/uL (0.0-0.1); EOSINOPHILS # (AUTO) 0.3 10^3/uL (0.0-0.7); EOSINOPHILS % (AUTO) 2.6 %; HCT - HEMATOCRIT 42.4 % (42.0-52.0); HGB - HEMOGLOBIN 13.3 g/dL (14.0-18.0); LYMPHOCYTES # (AUTO) 1.8 10^3/uL (1.5-3.5); LYMPHOCYTES % (AUTO) 16.4 %; MEAN CORPUSCULAR HEMOGLOBIN 28.6 pg (27.0-31.0); MEAN CORPUSCULAR HGB CONC 31.4 g/dL (32.0-36.0); MEAN CORPUSCULAR VOLUME 91.1 fL (80.0-94.0); MEAN PLATELET VOLUME 7.6 fL (7.4-11.4); MONOCYTES # (AUTO) 1.1 10^3/uL (0.0-1.0); MONOCYTES % (AUTO) 10.1 %; NEUTROPHILS # (AUTO) 7.6 10^3/uL (1.5-6.6); NEUTROPHILS % (AUTO) 69.9 %; NUCLEATED RED BLOOD CELLS AUTO 0.1 /100WBC; RED BLOOD COUNT 4.66 10^6/uL (4.70-6.10); RED CELL DISTRIBUTION WIDTH 15.9 % (12.0-15.0); UNCORRECTED WHITE BLOOD COUNT 10.8 x10^3/uL; WHITE BLOOD COUNT 10.8 x10^3/uL (4.8-10.8)
[2017-01-23 05:59] LABS: CALCIUM 8.4 mg/dL (8.5-10.3); CREATININE 0.9 mg/dL (0.6-1.2); POTASSIUM 4.3 mmol/L (3.5-5.0)
[2017-01-23] MEDS: PANTOPRAZOLE 40 MG TABLET PO SCH (06:25)
[2017-01-23] MEDS: ALPRAZolam 0.25 MG TABLET PO SCH ×2 (06:25→16:38)
[2017-01-23] MEDS: FORMOTEROL FUMARATE NEB 20 MCG/2 ML INH SCH (07:17)
[2017-01-23] MEDS: BUDESONIDE 0.5 MG/2 ML NEB INH SCH (07:17)
[2017-01-23] MEDS: FUROSEMIDE 40 MG/4 ML VIAL IVP SCH ×2 (07:35→16:38)
[2017-01-23] MEDS: INSULIN ASPART 300 UNIT/3 ML PEN SUBQ SCH ×3 (09:01→17:33)
[2017-01-23] MEDS: FINASTERIDE 5 MG TABLET PO SCH (09:01)
[2017-01-23] MEDS: ENOXAPARIN 40 MG/0.4 ML SYRINGE SUBQ SCH (09:01)
[2017-01-23] MEDS: SACCHAROMYCES BOULARDII 250 MG CAPSULE PO SCH ×2 (09:01→17:36)
[2017-01-23] MEDS: POLYETHYLENE GLYCOL 3350 17 GM PACKET PO SCH (09:01)
[2017-01-23] MEDS: CELECOXIB 100 MG CAPSULE PO SCH (09:01)
[2017-01-23] MEDS: SODIUM CHLORIDE FLUSH 0.9% 10 ML SYRINGE IVP SCH ×2 (09:52→16:39)
--- NOTE | 2017-01-23 14:58 | PROVIDER PROGRESS NOTE ---
Subjective - Prog Note Date Prog Note Date: 01/23/17 Prog Note Time: 14:54 - Subjective Pt reports feeling: Improved Subjective: He wants to go home. Keeps on asking to go home. I did spend some time talking to Dr. Reed on the phone about him yesterday. 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 The some of the syncope may be due to the fact that he bradycardia down with sinus bradycardia and had the syncope. R locate technician is only caught down to 45. But I have been in the room personally when he has bradycardia down to 32 beats a minute. He was sitting down. Did not feel lightheaded. Then he goes back into A. fib to 132. Dr. Reed feels that the patient needs a pacemaker. I have called [facility] and V1 crab fisher that handled electrophysiology is out of town for a week. I called Dr. Reed's group at [facility], and [facility] does not have a telemetry bed right now. They think they may call me this afternoon. He is coughing much less. Not short of breath. Able to get out of the bed and sit in the chair. Eating his meals. I was also able to get hold of his [facility] physician, Isadora singleton. She is rescheduled him for a meeting tomorrow. I have explained that he will need close follow-up, possibly placement. I also spoke to his friend Rashawn Lopez. I was under the impression that Mr. Lopez was the power of trade mark attorney. Mr. Lopez corrects me. He says he is a good friend, and he would like to be power of trade mark attorney, but they never took care of the paperwork. So technically he feels like I should not even be discussing Mr. Hernandez his medical problems unless missed or if it signs a records release. Mr. Lopez's phone number is [phone]. Current Medications - Current Medications Current Medications: Active Medications Acetaminophen (Tylenol) 650 mg PO Q4HR PRN PRN Reason: Pain 1 to 4 Last Admin: 01/21/17 02:34 Dose: 650 mg Acetaminophen/Hydrocodone Bitart ([place] 5/325) 1 tab PO Q4HR PRN PRN Reason: Pain 5 to 7 Acetaminophen/Hydrocodone Bitart ([place] 10 Mg/325 Mg) 1 tab PO Q4HR PRN PRN Reason: Pain 8 to 10 Albuterol/Ipratropium (Duoneb) 3 ml INH RTQID PRN PRN Reason: Wheezing Last Admin: 01/22/17 07:54 Dose: 3 ml Alprazolam (Xanax) 0.5 mg PO TID [facility] Last Admin: 01/23/17 06:25 Dose: 0.5 mg Atorvastatin Calcium (Lipitor) 40 mg PO QPM [facility] Last Admin: 01/22/17 21:57 Dose: 40 mg Budesonide (Pulmicort) 0.5 mg INH RTBID [facility] Last Admin: 01/23/17 07:17 Dose: 0.5 mg Celecoxib (Celebrex) 200 mg PO DAILY [facility] Last Admin: 01/23/17 09:01 Dose: 200 mg Enoxaparin Sodium (Lovenox) 40 mg SUBQ DAILY [facility] Last Admin: 01/23/17 09:01 Dose: 40 mg Finasteride (Proscar) 5 mg PO DAILY [facility] Last Admin: 01/23/17 09:01 Dose: 5 mg Formoterol Fumarate (Perforomist) 20 mcg INH RTBID [facility] Last Admin: 01/23/17 07:17 Dose: 20 mcg Furosemide (Lasix Inj 40 Mg Vial) 40 mg IVP BIDDIURETIC [facility] Last Admin: 01/23/17 07:35 Dose: Not Given Levofloxacin (Levaquin 500 Mg/100 Ml) 500 mg in 100 mls @ 100 mls/hr IV Q24H [facility] Last Infusion: 01/22/17 22:59 Dose: Infused Insulin Aspart (Novolog) 1 - 5 unit SUBQ 0800,1200,1700,2100 [facility] PRN Reason: Protocol Last Admin: 01/23/17 11:36 Dose: Not Given Ondansetron HCl (Zofran Inj) 4 mg IVP Q6HR PRN PRN Reason: Nausea / Vomiting Pantoprazole Sodium (Protonix) 40 mg PO QDAC [facility] Last Admin: 01/23/17 06:25 Dose: 40 mg Polyethylene Glycol (Miralax) 17 gm PO DAILY [facility] Last Admin: 01/23/17 09:01 Dose: Not Given Prochlorperazine Edisylate (Compazine Inj) 10 mg IVP Q6HR PRN PRN Reason: Nausea / Vomiting Saccharomyces Boulardii (Florastor) 250 mg PO BIDWM [facility] Last Admin: 01/23/17 09:01 Dose: 250 mg Sodium Chloride (Normal Saline Flush 0.9%) 10 ml IVP PRN PRN PRN Reason: NEEDED PER PROVIDER ORDERS Sodium Chloride (Normal Saline Flush 0.9%) 10 ml IVP Q8HR [facility] Last Admin: 01/23/17 09:52 Dose: Not Given Zolpidem Tartrate (Ambien) 5 mg PO QPM PRN PRN Reason: Insomnia Last Admin: 01/21/17 03:03 Dose: 5 mg Budesonide/Formoterol 160/4.5 [Symbicort] 2 puffs INH BID 11/16/14 Albuterol Sulfate [Proair Hfa Inhaler] 2 puffs INH Q4H PRN 01/21/17 Furosemide 20 mg PO DAILY 01/21/17 Lisinopril 10 mg PO DAILY 01/21/17 Objective - Vital Signs/Intake & Output Reviewed Vital Signs: Yes Vital Signs: Vital Signs x48h Temp Pulse Pulse Resp BP BP Pulse Ox 01/23/17 08:48 36.7 C 60 149/59 H 95 01/23/17 07:42 36.5 C 60 20 149/59 H 95 01/23/17 07:21 64 20 Intake & Output: Intake & Output 01/20/17 01/21/17 01/22/17 01/23/17 23:59 23:59 23:59 23:59 Intake Total 2430 3060 1210 Output Total 2675 2350 1000 Balance -245 710 210 - Objective General Appearance: positive: No acute distress, Alert, Other (Elderly white male, sitting up in a chair, deeply nasal tone of voice but very comfortable, laughing.) Eyes Bilateral: positive: PERRL, EOMI ENT: positive: Other (The back of throat is slightly cobblestone. No erythema, no exudate) Neck: positive: No JVD, Lymphadenopathy (R) (Shotty), Lymphadenopathy (L) ( Shotty). negative: Stiff neck, Carotid bruit Respiratory: positive: Chest non-tender, No respiratory distress, Other ( Diminished breath sounds diffusely with very quiet lung sounds but he is moving air and chest wall excursion is good). negative: Wheezes, Rales, Rhonchi (But has prolonged and exhalation they have resolved from yesterday. When he was first admitted he had gurgling wet rhonchi. Those of been gone since yesterday) Cardiovascular: positive: Regular rate & rhythm, Extrasystoles, Systolic murmur. negative: Gallop/S4, Friction rub Abdomen: positive: Non-tender, No organomegaly, Nml bowel sounds, No distention Skin: positive: Warm, Dry Extremities: positive: Pedal edema (Mild) Neurologic/Psychiatric: positive: CN's nml (2-12), Motor nml (But ataxic, wobbly. Really needs a walker.), Disoriented to time, Other (Very poor short- term memory. I spoke to him at length about pacemaker last night. He does not remember any of that conversation. He again states that he does not remember any hospitalization in July 2016 when he was discharged on CHF drugs.) - Lab Results Fish Bones: 01/23/17 05:09 01/23/17 05:09 Other Labs: Lab Results x24hrs 01/23/17 01/23/17 01/23/17 Range/Units 11:34 08:02 05:09 WBC (4.8-10.8) x10^3/uL RBC (4.70-6.10) 10^6/uL Hgb (14.0-18.0) g/dL Hct (42.0-52.0) % MCV (80.0-94.0) fL MCH (27.0-31.0) pg MCHC (32.0-36.0) g/dL RDW (12.0-15.0) % Plt Count (130-450) 10^3/uL MPV (7.4-11.4) fL Neut # (1.5-6.6) 10^3/uL Lymph # (1.5-3.5) 10^3/uL Trigg # (0.0-1.0) 10^3/uL Eos # (0.0-0.7) 10^3/uL Baso # (0.0-0.1) 10^3/uL Absolute Nucleated RBC x10^3/uL Nucleated RBC % /100WBC Sodium 138 (135-145) mmol/L Potassium 4.3 (3.5-5.0) mmol/L Chloride 102 (101-111) mmol/L Carbon Dioxide 30 (21-32) mmol/L Anion Gap 6.0 (6-13) BUN 27 H (6-20) mg/dL Creatinine 0.9 (0.6-1.2) mg/dL Estimated GFR (MDRD) 80 L (>89) Glucose 123 H (70-100) mg/dL POC Whole Bld Glucose 122 H 113 H (70 - 100) mg/dL Calcium 8.4 L (8.5-10.3) mg/dL 01/23/17 01/22/17 01/22/17 Range/Units 05:09 20:32 17:00 WBC 10.8 (4.8-10.8) x10^3/uL RBC 4.66 L (4.70-6.10) 10^6/uL Hgb 13.3 L (14.0-18.0) g/dL Hct 42.4 (42.0-52.0) % MCV 91.1 (80.0-94.0) fL MCH 28.6 (27.0-31.0) pg MCHC 31.4 L (32.0-36.0) g/dL RDW 15.9 H (12.0-15.0) % Plt Count 239 (130-450) 10^3/uL MPV 7.6 (7.4-11.4) fL Neut # 7.6 H (1.5-6.6) 10^3/uL Lymph # 1.8 (1.5-3.5) 10^3/uL Trigg # 1.1 H (0.0-1.0) 10^3/uL Eos # 0.3 (0.0-0.7) 10^3/uL Baso # 0.1 (0.0-0.1) 10^3/uL Absolute Nucleated RBC 0.01 x10^3/uL Nucleated RBC % 0.1 /100WBC Sodium (135-145) mmol/L Potassium (3.5-5.0) mmol/L Chloride (101-111) mmol/L Carbon Dioxide (21-32) mmol/L Anion Gap (6-13) BUN (6-20) mg/dL Creatinine (0.6-1.2) mg/dL Estimated GFR (MDRD) (>89) Glucose (70-100) mg/dL POC Whole Bld Glucose 108 H 111 H (70 - 100) mg/dL Calcium (8.5-10.3) mg/dL Assessment/Plan - Problem List (1) Acute respiratory failure with hypoxia and hypercapnia Impression: In reviewing his records, it is acute on chronic. He has a combination of pneumonia and severe right sided congestive heart failure. ECHO reviewed yesterday and shows improved LVEF from 07/2012 but much worse RV. ABG reviewed yesterday. He declined transfer to ICU with BIPAP yesterday. Saw PT today: Pt. is seen x total of 22 min. for gait training as follows: Pt. on 3.0 lit.of O2, n.c.; he is placed on a portable tank; pt. O2 saturation at rest = 88%; he transfers sit to stand w/min. a x 1 stating he is still sleepy; he ambulates into hallway x 50 ft. to [facility] at end of hallway; pt. takes a standing rest for ~2.0 min.; O2 saturation at 81%; he amb. another 50 ft. back to the room and sits in his chair; f/u O2 saturation after ~2.0 min. of resting is at 83%; nurse "Jose M" arrives in room and he is made aware of pt.'s O2 saturation; pt. states he feels fine and his O2 saturations are "always low" . Nurse reports pt. usually increases his saturation levels after sitting and resting; pt. has no complaints or voiced concerns; pt. w/call light in reach and LE's elevated in recliner; nurse checks on pt. R foot that pt. c/o as feeling sore. Plan: Lasix 40 mg IV push twice daily changed to po. He pulled out his IV and declines to have it put back. Continue PerforomKamille hancock DuoNeb, Levaquin (2) CAP (community acquired pneumonia) Impression: In a patient who has bronchiectasis. The patient presented originally to the emergency department with an episode of syncope. However on arrival he was found to be hypoxic with an O2 saturation of 83% on room air and was tachypneic with coughing and phlegm production. On further questioning the patient stated that he is supposed to be on oxygen at home for COPD however he does not use his oxygen. The patient had a short- lived syncopal episode from which he awoke with abrasions to his forehead and nasal bridge. The patient has been having increasing shortness of breath and coughing with sputum production over the last month but significantly worse over the last week. He has been trying to get into see a CT PCP however has had a very difficult time [facility] with [facility]. In speaking to him about the difficulty, he HAD a PCP but he retired. He never got around to getting a new PCP and since his health is continuing to deteriorate he decided he had better get on it but was alarmed to find how hard it is to get back into the clinic. Lab work revealed a leukocytosis and patient's chest x-ray showed right upper and lower lobe infiltrates given the patient's hypoxia and syncopal episode he was admitted to the medical lew for treatment of community acquired pneumonia with IV antibiotics. Plan: Patient will be placed on IV Levaquin for treatment of community acquired pneumonia. Day #4. We gave the patient IV fluids as he did appear to be on the dry side but have stopped it due to acute chf. Patient desperately needs to make an appointment that he has set with his primary care physician at the [facility] on 01/22/2017. we could not promise the patient that he would be discharged in time to make the appointment . however we will try and do our best to get the patient to a rescheduled appointment. I called them this am at [phone]. [facility] with Isadora Singleton listed as his PCP. The patient did threaten that if he is not discharged in time for the appointment that he would leave AMA. I did discuss his case with Dr. Singleton and she will make sure their case hardener is aware and starts drawing upon the numerous support programs the CT has in place for someone like him. She will make an appointment for him for tomorrow. Qualifiers: Laterality: right (3) Syncope Conclusion/Plan: The patient presents to the emergency department with a syncopal episode. This episode occurred while the patient was sitting on his couch watching TV. The patient face planted into his table. He did have significant abrasions over his forehead and nasal bridge. The patient states that this was not a prolonged syncopal episode and in fact states that he remembers the entire episode. The etiology of the patient's syncope appears likely secondary to him being hypoxic due to chronic COPD and now a new pneumonia. It is however possible given that this was a sudden syncope that this could have been from a cardiac arrhythmia. Tele for the last 24 hours shows him to be alternating with sinus, 1st degree with a bundle and many ectopic beats of PAC's and PVC's or afib with RVR of 130's. His rate will be 132 and in 5 seconds get as low as 45. Plan: Call Dr. Catarino Reed, the Insurance Policy Clerk from Cardiology at [facility] ([phone]) and let them know he may need a pacer. Message left at 15:00 on 01/22 and she did return my call. She suggests a pacemaker. I have called [facility] and they have no beds until this afternoon or evening. They will also have Dr. Troy give me a call. (4) COPD (chronic obstructive pulmonary disease) Conclusion/Plan: The patient has a history of COPD and bronchiectasis and is on oxygen at home but does not use his oxygen appropriately. He doesn't think he needs it. Medical Records Tech is Antwan Marcial in [place]. Patient does use inhalers as needed but states that he does not use his Symbicort daily. Patient presents with hypoxia and is found to have community acquired pneumonia he does have some mild wheezing on examination but does not appear to be in severe COPD exacerbation at this time. He does have mild exacerbation and I think the main cause of VALERO and hypoxia is his pneumonia and right sided heart failure. PC02 was 57 Plan: We will continue the supplemental oxygen and aim for 02 sat of 92% Patient will be given formoterol and budesonide twice daily while he is hospitalized Patient will be given DuoNeb's as needed Patient will be on Levaquin for community acquired pneumonia, Day#4 today We will not treat with steroids as the patient does have history of diabetes and is not in severe COPD exacerbation (5) MARY ANN (acute kidney injury) Conclusion/Plan: The patient does appear to be quite dry on examination. Looking at his lab work his creatinine is elevated to 1.3 which is up from a baseline of 0.8. This is likely prerenal azotemia secondary to community-acquired pneumonia. he was 0.9 so he is at baseline. Plan: IVF will be stopped. We will continue to monitor the patient's creatinine (6) Diabetes Conclusion/Plan: The patient has history of diabetes and is on metformin at home. The patient however denies having diabetes and states that was a long time ago but does admit to taking metformin. A1c is 6.6% Plan: Patient be placed on a diabetic diet Patient's metformin will be held to avoid lactic acidosis. Patient will be placed on sliding scale insulin while he is hospitalized and so far none has been needed up to now. We will check patient's blood glucose before meals at bedtime Qualifiers: Diabetes mellitus type: type 2
[2017-01-23 16:03] VITALS: BP 141/63
--- NOTE | 2017-01-23 17:53 | Discharge Plan ---
Discharge Plan Disposition: 02 Transfer Acute Care Hosp Condition: Good Diet: Diabetic Activity Restrictions: Activity as Tolerated Shower Restrictions: No Driving Restrictions: Yes (no driving) Assistance Devices: Walker No Smoking: If you smoke, Please STOP! Call for help. Follow-up with: Harpreet De Leon MD [Primary Care Provider] -
--- NOTE | 2017-01-24 09:34 | DISCHARGE SUMMARY ---
REVISED: REPORT ORIG. SIGNED 01/24/2017@1011; ACCT CORRECTION 01/24/17 adrián DATE OF ADMISSION: 01/20/2017 DATE OF DISCHARGE: 01/23/2017 DISCHARGE DIAGNOSES 1. Acute respiratory failure with hypoxemia and hypercapnia. 2. Community-acquired pneumonia. 3. Syncope. 4. Chronic obstructive pulmonary disease with mild acute exacerbation. 5. Acute kidney injury. 6. Type 2 diabetes mellitus, controlled, with complications. 7. Acute right-sided congestive heart failure. MEDICATIONS Medications on transfer to [facility] were: 1. Tylenol. 2. Gaylord. 3. DuoNeb. 4. Xanax. 5. Lipitor. 6. Pulmicort. 7. Celebrex. 8. Lovenox. 9. Proscar. 10. Perforomist. 11. Lasix 40 IV b.i.d. 12. Levaquin 500 daily IV. 13. Protonix 40 p.o. daily. 14. Florastor 250 mg p.o. b.i.d. 15. Celebrex 200 mg daily. PRINCIPAL PROCEDURES 1. Echocardiogram shows mild concentric left ventricular hypertrophy. Overall left ventricular systolic function normal with an ejection fraction of 55% to 60 %. Severe right ventricular enlargement. Right ventricular systolic function severely impaired. Severe increase in left atrial volume index. Severe right atrial enlargement. Severely abnormal right heart pressures. Right ventricular systolic pressure at rest is 70 mmHg. Inferior vena cava dilated at greater than 2.1 cm with less than 50% inspiratory collapse, indicating RAP of at least 15 mmHg. 2. Chest x-ray with right upper lobe and right lower lobe infiltrate, hyperinflated lungs. HOSPITAL COURSE: The patient's history was initially obtained by the admitting hospitalist. I then obtained medical records via [facility] to review his overall status. He is an 86-year-old gentleman who lives in his own home/apartment. He is estranged from his family. He has an ex-. His son worked in a fishing [employer] in the [facility] [place] and only has cell phone access maybe once every 3 months. He is close friends with his landlord name Rashawn Lopez, who is at [phone]; and also is looked after by his neighbor, Kirill Tsang, who is at [phone]. They are not power of insurance attorney yet. They both state that he has been losing his memory significantly over the last 6 months. He has had multiple hospitalizations. While he has picked up his medications once from after the last hospitalization in July 2016, they do not think he has picked up any more, and he is not taking any more medicines. He used to be seen at the [facility] in [place], but his doctor retired. He has been without a PCP or followup on a regular basis, other than Cardiology with Dr. Catarino Reed, and his daycare assistant, Dr. Marcial, and even that has been sketchy. He is due to see Dr. Isadora Singleton on 01/15/2017 and was adamant that he needed to leave the hospital. He presents with a chief complaint of syncope. He was sitting in his living room and watching television when all of a sudden he passed out. He fell forward , hitting his face on the table in front of him, but woke quickly and remembered everything that was on the television show that he was watching. He notes that for the last 2 months he has been having progressively worsening cough with sputum production and increasing shortness of air. His cough and shortness of air have been significantly worse over the last week, to the point that he gets quite short of breath just walking 50 to 20 feet. He denies orthopnea, PND, or increasing lower extremity swelling. He denies fever or chills. He denies chest pain, palpitations. No dizziness prior to the episode. No warning. He denies diarrhea or vomiting. The patient also denied any heart disease, arrhythmias, and lung disease. This is where his memory loss plays into it. In reviewing the [facility] network, the patient has a definitive history of COPD, oxygen requiring since at least 2010. He has severe bronchiectasis. He also has chronic systolic congestive heart failure, and echocardiogram done in July 2016 showed much worse left ventricular ejection fraction than this admission's ejection fraction. With that admission to [facility], his ventricle with severely dilated, had an ejection fraction of 45% to 50%. He had severe RV volume overload and the right ventricle was dilated. His left inferior wall had hypokinesis, and he had generalized overall global decreased function. Both atria were severely dilated, and his right ventricle systolic pressure was 40 mmHg. In February 2012 an echo showed a normal ejection fraction, normal right ventricle, moderate left atrial enlargement, mild right atrial enlargement. As such, during his stay it was more of a matter of piecing together his past medical history, since he was unable to supply us with most of it. Thank goodness that the [facility] network was available to us. In essence, we found him to be an elderly forgetful gentleman who was hypoxic, has a chronic nasal tone of voice, was in congestive heart failure from right-sided heart failure; had pneumonia, mild COPD exacerbation. He responded very quickly to diuresis, IV antibiotics, and was, in his mind, ready to go home. However, during his stay, we noted that he had tachy/greg syndrome. He would have sinus rhythm in the 70s and 80s with numerous PACs and PVCs. Then become sinus bradycardic to once, witnessed by me, 32. Telemetry strips caught him no lower than 45. Within 5 seconds he would then rebound to atrial fibrillation as high as the 130s. The patient is unaware of these episodes and has poor insight into his health. I spoke to his culled fruit packer, Catarino Reed. She felt that the patient needed a pacemaker before I could discharge him home safely. I also spoke to his primary care provider, the new one, at the [facility] in [place], and her name is Isadorara Singleton. I explained that this is an elderly demented man, living in a tenuous situation at home, and she states that she will have case management start implementing all the services provided for elderly veterans such as himself. I did at one point contact the [facility], since he is 90% service connected, but they had no beds. As such, the patient is now transferred to [facility] for his pacemaker. His current medical problems of COPD exacerbation, CHF, and pneumonia have improved considerably. He could most likely finish his antibiotics in the outpatient setting with Levaquin. The problem is getting him to remember to take this stuff. Then again, Mr. Lopez, his friend and neighbor and landlord, states that he cannot step in until the power of insurance attorney form is taken care of. DISCHARGE PHYSICAL EXAMINATION: He is transferred in stable condition with a temperature of 36.8, a heart rate of 59, blood pressure 141/63, respirations 21 , and 90% to 95% saturated on 3 liters. He has a deeply nasal tone of voice, a bulbous nose; is sitting upright in no acute distress. Shotty neck nodes. Lungs have diminished breath sounds diffusely, with poor air movement, but he is in no respiratory distress. When he was first admitted with acute respiratory failure, hypoxemia, and hypercapnia, he was slightly obtunded, had gurgling respirations, rhonchi and wheezes diffusely. His lung exam has remarkably improved over the last 2 days. He has a regular rate and rhythm at this moment in time with a systolic ejection murmur. He has a right ventricular lift. The abdomen is soft, nontender, normal bowel sounds. Minimal trace edema around the ankles and feet. While he is able to sit to stand to transfer, he needs two- standby assist. He is very wobbly on his feet. He was seen by Physical Therapy here, and he was able to ambulate into the hallway 50 feet, take a standing rest for 2 minutes. Ambulated another 50 feet back to the room. At rest, his O2 saturations were 88% on room air, and with ambulation he dropped to 81%. He needs 3 liters of O2 to maintain his O2 saturations greater than 92%. Greater than 30 minutes was spent in coordinating discharge. JOB #: [id number] EXT JOB #:[id number] SANTY
== END 2017-01-23 19:13 | disposition short-term general hospital (02) | DRG 189 ==
LOC: EDUNIT# → ED 21:36 → MS3 22:51
PROVIDERS: ADMIT Internal Medicine; ATTEND Specialist
DX: J18.9 Pneumonia, unspecified organism (principal); J96.01 Acute respiratory failure with hypoxia; J18.1 Lobar pneumonia, unspecified organism; J44.0 Chronic obstructive pulmonary disease with (acute) lower respiratory infection; J44.1 Chronic obstructive pulmonary disease with (acute) exacerbation; N17.9 Acute kidney failure, unspecified; I50.22 Chronic systolic (congestive) heart failure; I49.5 Sick sinus syndrome; Y92.001 Dining room of unspecified non-institutional (private) residence as the place of occurrence of the external cause; J96.02 Acute respiratory failure with hypercapnia; R55 Syncope and collapse; E11.9 Type 2 diabetes mellitus without complications; F41.9 Anxiety disorder, unspecified; F32.9 Major depressive disorder, single episode, unspecified; Z91.138 Patient's unintentional underdosing of medication regimen for other reason; Z99.81 Dependence on supplemental oxygen; K21.9 Gastro-esophageal reflux disease without esophagitis; E78.5 Hyperlipidemia, unspecified; S00.31XA Abrasion of nose, initial encounter; S00.81XA Abrasion of other part of head, initial encounter; W07.XXXA Fall from chair, initial encounter; Y92.008 Other place in unspecified non-institutional (private) residence as the place of occurrence of the external cause; J47.9 Bronchiectasis, uncomplicated; N40.0 Benign prostatic hyperplasia without lower urinary tract symptoms; H54.7 Unspecified visual loss; M19.90 Unspecified osteoarthritis, unspecified site; Z79.51 Long term (current) use of inhaled steroids; Z79.899 Other long term (current) drug therapy; Z87.891 Personal history of nicotine dependence; Z79.84 Long term (current) use of oral hypoglycemic drugs
CPT/HCPCS: 36415; 36600; 71020; 80048; 80053; 81001; 81003; 82803; 83036; 83690; 83880; 84484; 85025; 87086; 93005; 93306; 94640; 99284; 99285

== ENCOUNTER 2017-01-23 18:54 | Outpatient (CLI) | payer MEDICARE, OTHER | END 2017-01-23 18:55 | disposition short-term general hospital (02) | LOC: EMS 18:54 | PROVIDERS: ATTEND Surgery | DX: I49.5 Sick sinus syndrome (principal) | CPT/HCPCS: A0170; A0425; A0426 ==

== ENCOUNTER 2017-01-25 21:28 | Outpatient (CLI) | payer MEDICARE, OTHER ==
[2017-01-26] MEDS ORDERED: IOPAMIDOL-300 100 ML VIAL ONE (12:56)
== END 2017-01-25 21:29 ==
LOC: EMS 21:28
PROVIDERS: ATTEND Surgery
DX: Z76.89 Persons encountering health services in other specified circumstances (principal)

== ENCOUNTER 2017-01-26 09:06 | Outpatient (CLI) | payer MEDICARE, OTHER | END 2017-01-26 09:07 | disposition critical access hospital (66) | LOC: EMS 09:06 | PROVIDERS: ATTEND Surgery | DX: S09.93XA Unspecified injury of face, initial encounter (principal); W19.XXXA Unspecified fall, initial encounter; Y92.039 Unspecified place in apartment as the place of occurrence of the external cause | CPT/HCPCS: A0425; A0429 ==

== ENCOUNTER 2017-01-26 09:24 | Emergency (ER) | payer MEDICARE, OTHER ==
[2017-01-26] MEDS ORDERED: IPRATROPIUM/ALBUTEROL 3 ML NEB INH STA (10:19)
--- NOTE | 2017-01-26 10:30 | ED Physician Documentation ---
History of Present Illness - Stated complaint Stated Complaint: FALL - Chief complaint Chief Complaint: Resp - Additonal information Additional information: 86-year-old male brought by ambulance to the emergency department after his neighbor called After he noted that the patient had fallen today.The patient reports that he fell a few days ago, but admits that he does not actually remember the fall. Unable to provide circumstances surrounding this.Patient is not oriented and clearly has some memory trouble, it appears that he had had this on prior admissions as well.Notably his oxygen had to be increased from 2 L to 4 L by EMS. Recently seen for Pneumonia, COPD, DM transferred to [facility] [place], left AMA. Came to this hospital for removal of PD PAST MEDICAL HISTORY - Past Medical History Cardiovascular: Other Respiratory: COPD Neuro: Fainting Endocrine/Autoimmune: Type 2 diabetes GI: GERD : Benign prostate hypertrophy HEENT: Chronic vision loss Psych: Depression, Anxiety Musculoskeletal: Osteoarthritis - Past Surgical History Past Surgical History: Yes General: Colonoscopy Ortho: Spine surgery - Present Medications Home Medications: Ambulatory Orders Medication Instructions Recorded Confirmed Budesonide/Formoterol 160/4.5 2 puffs INH BID 11/16/14 01/21/17 [Symbicort] Albuterol Sulfate [Proair Hfa 2 puffs INH Q4H PRN 01/21/17 01/21/17 Inhaler] Furosemide 20 mg PO DAILY 01/21/17 01/21/17 Lisinopril 10 mg PO DAILY 01/21/17 01/21/17 - Allergies Allergies/Adverse Reactions: Allergies Allergy/AdvReac Type Severity Reaction Status Date / Time Penicillins Allergy Unknown Verified 01/20/17 21:43 sertraline Allergy Unknown Verified 01/20/17 21:43 venlafaxine Allergy Unknown Verified 01/20/17 21:43 - Social History Does the pt smoke?: No Smoking Status: Never smoker Does the pt drink ETOH?: No Does the pt have substance abuse?: No - Immunizations Immunizations are current?: Yes - POLST Patient has POLST: No POLST Status: Full Code PD ED PE NORMAL - Vitals Vital signs reviewed: Yes - General General: No acute distress - HEENT HEENT: PERRL, Other (abrasion to nose) - Neck Neck: Supple, no meningeal sign - Cardiac Cardiac: RRR, No murmur - Respiratory Respiratory: Other (poor airentry with tachypnea, no increased WOB ) - Abdomen Abdomen: Normal bowel sounds, Soft, Non tender, Non distended - Back Back: No spinal TTP - Extremities Extremities: Other (2+ lower extremity edema below knees, mild erythema no warmth or TTP ) - Neuro Neuro: No motor deficit, No sensory deficit, Normal speech, Other (oriented to person only ) - Psych Psych: Normal mood, Normal affect Results - Vitals Vitals: Vital Signs - 24 hr 01/26/17 01/26/17 01/26/17 09:25 09:41 10:34 Temperature 36.6 C 36.6 C Heart Rate 82 69 73 Respiratory 17 18 18 Rate Blood Pressure 127/81 H 127/81 H 112/64 O2 Saturation 92 91 L 96 01/26/17 01/26/17 01/26/17 10:35 11:57 12:52 Temperature 36.8 C Heart Rate 86 77 86 Respiratory 24 28 H 16 Rate Blood Pressure 114/72 100/56 L O2 Saturation 86 L 88 L 01/26/17 01/26/17 01/26/17 13:00 14:03 15:02 Temperature 36.8 C Heart Rate 75 72 77 Respiratory 24 28 H 24 Rate Blood Pressure 124/55 L 138/73 H O2 Saturation 94 91 L 01/26/17 01/26/17 16:07 17:42 Temperature Heart Rate 70 72 Respiratory 24 18 Rate Blood Pressure 125/69 114/64 O2 Saturation 94 90 L Oxygen O2 Source Nasal cannula Oxygen Flow Rate 6 - EKG (time done) 0942 Rate: Rate (enter#) (79) Rhythm: NSR, Other (with pacs) Citra: Normal QRS: Normal Ischemia: Non specific changes (flattening/subtle inversion lead I and II) Computer interpretation: Agree with computer (late transtion r wave progression) - Labs Labs: Laboratory Tests 01/26/17 01/26/17 01/26/17 10:15 10:32 10:32 WBC RBC Hgb Hct MCV MCH MCHC RDW Plt Count MPV Neut # Lymph # Bryan # Eos # Baso # Absolute Nucleated RBC Nucleated RBC % VBG pH VBG pCO2 VBG pO2 VBG HCO3 VBG Total CO2 VBG O2 Saturation VBG Base Excess Sodium Potassium Chloride Carbon Dioxide Anion Gap BUN Creatinine Estimated GFR (MDRD) Glucose Lactic Acid 1.3 Calcium Total Bilirubin AST ALT Alkaline Phosphatase Troponin I 0.04 Total Protein Albumin Globulin Albumin/Globulin Ratio Urine Color YELLOW Urine Clarity CLEAR Urine pH >=9.0 H Ur Specific [place] 1.015 Urine Protein NEGATIVE Urine Glucose (UA) NEGATIVE Urine Ketones NEGATIVE Urine Occult Blood NEGATIVE Urine Nitrite NEGATIVE Urine Bilirubin NEGATIVE Urine Urobilinogen 2 H Ur Leukocyte Esterase NEGATIVE Ur Microscopic Review NOT INDICATED Urine Culture Comments NOT INDICATED Ethyl Alcohol 01/26/17 01/26/17 01/26/17 10:32 10:32 10:32 WBC 11.3 H RBC 5.48 Hgb 15.8 Hct 48.2 MCV 88.0 MCH 28.9 MCHC 32.8 RDW 15.6 H Plt Count 276 MPV 7.3 L Neut # 8.4 H Lymph # 1.6 Bryan # 1.1 H Eos # 0.1 Baso # 0.1 Absolute Nucleated RBC 0.00 Nucleated RBC % 0.0 VBG pH 7.428 H VBG pCO2 46.6 VBG pO2 75.9 H VBG HCO3 30.1 H VBG Total CO2 31.5 H VBG O2 Saturation 95.5 H VBG Base Excess 4.7 H Sodium 137 Potassium 4.2 Chloride 97 L Carbon Dioxide 28 Anion Gap 12.0 BUN 30 H Creatinine 1.1 Estimated GFR (MDRD) 63 L Glucose 126 H Lactic Acid Calcium 9.6 Total Bilirubin 1.6 H AST 28 ALT 29 Alkaline Phosphatase 88 Troponin I Total Protein 7.4 Albumin 3.5 Globulin 3.9 Albumin/Globulin Ratio 0.9 L Urine Color Urine Clarity Urine pH Ur Specific [place] Urine Protein Urine Glucose (UA) Urine Ketones Urine Occult Blood Urine Nitrite Urine Bilirubin Urine Urobilinogen Ur Leukocyte Esterase Ur Microscopic Review Urine Culture Comments Ethyl Alcohol < 5.0 01/26/17 17:17 WBC RBC Hgb Hct MCV MCH MCHC RDW Plt Count MPV Neut # Lymph # Bryan # Eos # Baso # Absolute Nucleated RBC Nucleated RBC % VBG pH 7.520 H VBG pCO2 37.6 L VBG pO2 40.1 VBG HCO3 30.0 H VBG Total CO2 31.2 H VBG O2 Saturation 81.4 H VBG Base Excess 6.9 H Sodium Potassium Chloride Carbon Dioxide Anion Gap BUN Creatinine Estimated GFR (MDRD) Glucose Lactic Acid Calcium Total Bilirubin AST ALT Alkaline Phosphatase Troponin I Total Protein Albumin Globulin Albumin/Globulin Ratio Urine Color Urine Clarity Urine pH Ur Specific [place] Urine Protein Urine Glucose (UA) Urine Ketones Urine Occult Blood Urine Nitrite Urine Bilirubin Urine Urobilinogen Ur Leukocyte Esterase Ur Microscopic Review Urine Culture Comments Ethyl Alcohol - Rads (name of study) No standard instances Radiology: Prelim report reviewed, Other (No pulmonary embolus, moderate cardiomegaly increased from prior with streaky opacities in lower lung arellano likely edema and atelectasis.Appears to have an implanted data architect.) PD MEDICAL DECISION MAKING - ED course Complexity details: reviewed old records ED course: 86-year-old male with history of memory problems presents with a fall the details of which she cannot recall.He has an increased oxygen requirement today , no wheezing appreciated but does have reduced air entry, no improvement with DuoNeb. VBG without CO2 retention.Concern for possibility of pulmonary embolus given recent hospitalization and hypoxia without CO2 retention. Will obtain CT angio chest. Patient reports today that he is concerned about returning home by himself, which is a change from his prior visits where he is often left AMA. He is a [facility] patient, will attempt to reach out to the [facility] for transfer as patient For patient's hypoxic respiratory failure as well as confusion with inability to care for self at home. 1457 IV Lasix ordered after return of CHF on patient's CT of the chest.Patient is pending possible acceptance and transfer to the [facility]. Records received from admission to [facility], patient's discharge diagnoses were syncope with an implanted loop recorder, as well as chronic systolic heart failure cognitive decline, pneumonia, COPD and medication noncompliance. His left ventricular systolic function on January 24 was 48%. It was recommended that he be transitioned to an assisted living facility, yesterday on January 25. Patient was unwilling to do so and was deemed to have decisional capacity yesterday despite his cognitive deficits. It was recommended that he follow-up in [address] Reed for his loop recorder. 1700 Discussed patient's case with Dr. Scott at the [facility], accepts patient in transfer, requests ABG be performed.Respiratory therapy tried twice to collect patient's ABG and was unsuccessful, patient became quite disgruntled and did not wish to have further attempts. A VBG was ordered. Per Dr. Scott's request I have ordered azithromycin 500 mg to continue his pneumonia treatment. Departure - Departure Disposition: 02 Transfer Acute Care Hosp
[2017-01-26] MEDS ORDERED: IPRATROPIUM/ALBUTEROL 3 ML NEB INH ONE (10:32)
[2017-01-26 10:41] LABS: VBG BASE EXCESS 4.7 mmol/L (-2 - +2); VBG PCO2 46.6 mmHg (41-51); VBG PH 7.428 (7.31-7.41); VBG PO2 75.9 mmHg (25-47); VBG TOTAL CO2 31.5 mmol/L (24-29)
[2017-01-26 10:44] LABS: BASOPHILS # (AUTO) 0.1 10^3/uL (0.0-0.1); BASOPHILS % (AUTO) 1.1 %; EOSINOPHILS # (AUTO) 0.1 10^3/uL (0.0-0.7); EOSINOPHILS % (AUTO) 1.1 %; HGB - HEMOGLOBIN 15.8 g/dL (14.0-18.0); LYMPHOCYTES # (AUTO) 1.6 10^3/uL (1.5-3.5); LYMPHOCYTES % (AUTO) 14.2 %; MEAN CORPUSCULAR HEMOGLOBIN 28.9 pg (27.0-31.0); MEAN CORPUSCULAR HGB CONC 32.8 g/dL (32.0-36.0); MEAN PLATELET VOLUME 7.3 fL (7.4-11.4); MONOCYTES # (AUTO) 1.1 10^3/uL (0.0-1.0); MONOCYTES % (AUTO) 9.7 %; NEUTROPHILS # (AUTO) 8.4 10^3/uL (1.5-6.6); NEUTROPHILS % (AUTO) 73.9 %; PLT - PLATELET COUNT 276 10^3/uL (130-450); RED BLOOD COUNT 5.48 10^6/uL (4.70-6.10); RED CELL DISTRIBUTION WIDTH 15.6 % (12.0-15.0); WHITE BLOOD COUNT 11.3 x10^3/uL (4.8-10.8)
[2017-01-26 10:47] LABS: BILIRUBIN,URINE NEGATIVE (NEGATIVE); GLUCOSE, URINE (UA) NEGATIVE (NEGATIVE); KETONES,URINE (UA) NEGATIVE (NEGATIVE); LEUKOCYTE ESTERASE, URINE NEGATIVE (NEGATIVE); NITRITE,URINE NEGATIVE (NEGATIVE); OCCULT BLOOD,URINE NEGATIVE (NEGATIVE); PH,URINE >=9.0 PH (5.0-7.5); PROTEIN,URINE NEGATIVE (NEGATIVE); UROBILINOGEN,URINE 2 E.U./dL (NORMAL)
[2017-01-26 10:51] LABS: CLARITY,URINE CLEAR (CLEAR)
[2017-01-26 10:54] LABS: ALBUMIN 3.5 g/dL (3.2-5.5); ALBUMIN/GLOBULIN RATIO 0.9 (1.0-2.2); ALKALINE PHOSPHATASE 88 IU/L (42-121); ALT ALANINE AMINOTRANSFERASE 29 IU/L (10-60); AST ASPARTATE AMINOTRANSFERASE 28 IU/L (10-42); BILIRUBIN,TOTAL 1.6 mg/dL (0.2-1.0); BUN - BLOOD UREA NITROGEN 30 mg/dL (6-20); CALCIUM 9.6 mg/dL (8.5-10.3); CARBON DIOXIDE - CO2 28 mmol/L (21-32); CHLORIDE 97 mmol/L (101-111); CREATININE 1.1 mg/dL (0.6-1.2); GFR - MDRD 63 (>89); GLUCOSE 126 mg/dL (70-100); SODIUM 137 mmol/L (135-145); TOTAL PROTEIN 7.4 g/dL (6.7-8.2)
--- NOTE | 2017-01-26 11:56 | XRAY Preliminary Report ---
Exam: XR CHEST 1 VIEW IMPRESSION: 1. Bibasilar opacities are similar to prior and may represent an acute or acute on chronic process. 2. New electronic device projects over the left heart border. [facility] SITE ID: [id number]
--- NOTE | 2017-01-26 11:59 | XRAY Report ---
EXAM: CHEST RADIOGRAPHY EXAM DATE: 01/26/2017 11:42 AM. CLINICAL HISTORY: Hypoxia. COMPARISON: 01/20/2017. TECHNIQUE: 1 view. FINDINGS: Lungs/Pleura: Bibasilar patchy and reticular pulmonary opacities have not significantly changed trace red to prior. No new consolidation. Emphysema again demonstrated. No pneumothorax or large pleural ef fusion. Mediastinum: Mild to moderate enlargement of the cardiac silhouette as before. Other: 5 cm thin linear electronic device objects over the left heart border, and is new from prior. IMPRESSION: 1. Bibasilar opacities are similar to prior and may represent an acute or acute on chronic process. 2. New electronic device projects over the left heart border. [facility] Referring Provider Line: [phone] SITE ID: [id number]
--- NOTE | 2017-01-26 12:01 | CT Preliminary Report ---
Exam: CT HEAD W/O IMPRESSION: Generalized age-related cortical atrophic changes without evidence of acute intracranial abnormality. No significant change from prior. [facility] SITE ID: [id number]
--- NOTE | 2017-01-26 12:04 | CT Report ---
EXAM: CT HEAD EXAM DATE: 01/26/2017 11:43 AM. CLINICAL HISTORY: Altered mental status. Fall. COMPARISON: 11/16/2014. TECHNIQUE: Multiaxial CT images were obtained from the foramen magnum to the vertex. Reformats: Coron al. IV contrast: None. In accordance with CT protocol optimization, one or more of the following dose reduction techniques w ere utilized for this exam: automated exposure control, adjustment of mA and/or KV based on patient s ize, or use of iterative reconstructive technique. FINDINGS: Parenchyma: No intraparenchymal hemorrhage. No evidence of mass, midline shift, or CT findings of acu te infarction. Floyd-white differentiation is distinct. Diffuse chronic microangiopathic white matter changes are evident. Extraaxial Spaces: Normal for age. No subdural or epidural collections identified. Ventricles: The ventricles and cortical sulci are enlarged, consistent with age-related tissue loss. Sinuses and orbits: Imaged paranasal sinuses, orbits, and mastoids show no significant abnormality. Bones: No evidence of fracture or calvarial defect. Other: None. IMPRESSION: Generalized age-related cortical atrophic changes without evidence of acute intracranial abnormality. No significant change from prior. [facility] Referring Provider Line: [phone] SITE ID: [id number]
[2017-01-26] MEDS ORDERED: ALBUTEROL NEB 2.5 MG/3 ML INH STA (12:42)
[2017-01-26] MEDS ORDERED: ALBUTEROL NEB 2.5 MG/3 ML INH ONE (13:04)
[2017-01-26] MEDS ORDERED: IOPAMIDOL-300 100 ML VIAL IVP ONE ×2 (13:49→13:57)
--- NOTE | 2017-01-26 14:23 | CT Preliminary Report ---
Exam: CT CHEST ANGIO (PE) IMPRESSION: 1. No evidence of pulmonary emboli. 2. Moderate cardiomegaly appears increased from prior exam. New small pericardial effusion. Likely pu lmonary vascular congestion noted. New streaky opacities in both lungs are likely due to edema and at electasis. Findings suggest CHF. 3. Stable underlying emphysema. 4. Electronic device in the left chest noted on chest x-ray earlier today appears to correspond to a metallic device seen in the medial left breast, likely an implanted early head start teacher. [facility] SITE ID: [id number]
--- NOTE | 2017-01-26 14:25 | CT Report ---
EXAM: CT ANGIOGRAM CHEST EXAM DATE: 01/26/2017 01:49 PM. CLINICAL HISTORY: Hypoxia, chest pain. COMPARISON: Chest x-ray 01/26/2017. Prior CT 11/16/2014. TECHNIQUE: Routine helical imaging was performed through the chest in the pulmonary arterial phase. I V Contrast: 80 mL of Isovue-300. Reconstructions: Coronal and sagittal 3-D MIP reconstructions.Sagitt al and coronal. In accordance with CT protocol optimization, one or more of the following dose reduction techniques w ere utilized for this exam: automated exposure control, adjustment of mA and/or KV based on patient s ize, or use of iterative reconstructive technique. FINDINGS: Pulmonary Arteries: Diagnostic quality: Adequate through the segmental arteries. No evidence for acute or chronic pulmona ry emboli. RV/LV is within normal limits. There is no interventricular septal bowing. There is no reflux of cont rast material in the IVC. Lungs/Pleura: There is underlying emphysematous change in both lungs. Some new streaky opacities note d in both lungs are likely due to edema and atelectasis. No dense pulmonary consolidation is identifi ed. There are no discrete nodules or masses seen. No effusions or pneumothorax. Mediastinum: There is at least moderate cardiomegaly, increased from prior exam. There is a new small pericardial effusion. There is likely pulmonary vascular congestion. No adenopathy is identified. Thoracic Aorta: Atherosclerotic calcifications are noted. Otherwise unremarkable. Upper Abdomen: Unremarkable. Other: Electronic device in the left chest noted on chest x-ray earlier today appears to correspond t o a metallic device seen in the medial left breast, likely an implanted monitor technician. Patient has had prior cervical spine fusion. No acute bony abnormality is identified. IMPRESSION: 1. No evidence of pulmonary emboli. 2. Moderate cardiomegaly appears increased from prior exam. New small pericardial effusion. Likely pu lmonary vascular congestion noted. New streaky opacities in both lungs are likely due to edema and at electasis. Findings suggest CHF. 3. Stable underlying emphysema. 4. Electronic device in the left chest noted on chest x-ray earlier today appears to correspond to a metallic device seen in the medial left breast, likely an implanted monitor technician. [facility] Referring Provider Line: [phone] SITE ID: [id number]
[2017-01-26] MEDS ORDERED: FUROSEMIDE 20 MG/2 ML VIAL IVP STA (14:42)
[2017-01-26] MEDS ORDERED: FUROSEMIDE 20 MG/2 ML VIAL IVP ONE (15:09)
[2017-01-26] MEDS ORDERED: AZITHROMYCIN INJ 500 MG in SODIUM CHLORIDE 0.9% 250 ML IV STA (16:57)
[2017-01-26 17:24] LABS: VBG PCO2 37.6 mmHg (41-51); VBG PH 7.52 (7.31-7.41)
[2017-01-26 17:25] LABS: VBG BASE EXCESS 6.9 mmol/L (-2 - +2); VBG PO2 40.1 mmHg (25-47); VBG TOTAL CO2 31.2 mmol/L (24-29)
[2017-01-26 20:11] VITALS: BP 120/76
== END 2017-01-26 20:11 | disposition short-term general hospital (02) ==
LOC: EDUNIT# → ED 09:24
DX: I50.9 Heart failure, unspecified (principal); J18.9 Pneumonia, unspecified organism; R09.02 Hypoxemia; R41.0 Disorientation, unspecified; J44.9 Chronic obstructive pulmonary disease, unspecified; S00.31XA Abrasion of nose, initial encounter; W19.XXXA Unspecified fall, initial encounter; Z91.81 History of falling; R41.3 Other amnesia; R41.89 Other symptoms and signs involving cognitive functions and awareness; E11.9 Type 2 diabetes mellitus without complications; K21.9 Gastro-esophageal reflux disease without esophagitis; N40.0 Benign prostatic hyperplasia without lower urinary tract symptoms; M19.90 Unspecified osteoarthritis, unspecified site
CPT/HCPCS: 36415; 70450; 71010; 71275; 80053; 81003; 82803; 83605; 84484; 85025; 87040; 93005; 94640; 96365; 96375; 99285; G0480; J7613; J7620; Q9967; 80320; 81001; 87086

== ENCOUNTER 2019-01-11 18:27 | Outpatient (CLI) | payer MEDICARE, OTHER | END 2019-01-11 18:28 | disposition EMS.NT | LOC: EMS 18:27 | PROVIDERS: ATTEND Surgery | DX: Z03.89 Encounter for observation for other suspected diseases and conditions ruled out (principal) ==